=== PATIENT | female | born 1980 | race Caucasian/White ===

== ENCOUNTER 2023-09-28 15:02 | Outpatient (OUT) | payer OTHER, SELFPAY ==
--- NOTE | 2023-09-28 15:13 | XR_ITS ---
The [address] [address] Patient Name: TIFFANIE VENEGAS MRN: [id number] date: 1980 Sex: F Assigned Patient Location: [facility] Current Patient Location: [facility] Accession/Order Number: [id number] Exam Date: 09/28/2023 15:20 Report Date: 09/28/2023 15:53 At the request of: HARIKA NELSON Procedure: XR chest 2V EXAM: XR chest 2V HISTORY: Bronchitis J40 . Cough and shortness of breath intermittently for the past month. COMPARISON: None. TECHNIQUE: Upright PA and lateral chest x-ray FINDINGS: The heart is not enlarged and the vasculature is not distended. No acute infiltrate, effusion or pneumothorax is identified. The osseous structures are grossly intact. XR/XR chest 2V IMPRESSION: No acute infiltrate or evidence of cardiac decompensation. Direct comparison with a previous study would be helpful in confirming the chronicity of these findings. Electronically authenticated by: CHASITY CAMPUZANO Date: 09/28/2023 15:53
--- NOTE | 2023-09-28 15:13 | XR_ITS ---
The [address] [address] Patient Name: TIFFANIE VENEGAS MRN: [id number] date: 1980 Sex: F Assigned Patient Location: [facility] Current Patient Location: Accession/Order Number: [id number] Exam Date: 09/28/2023 15:20 Report Date: 09/29/2023 07:49 At the request of: HARIKA NELSON Procedure: XR lumbar spine 6V w bending EXAMINATION: XR lumbar spine 6V w bending HISTORY: Leg Numbness R20.0 COMPARISON: No relevant comparison available. FINDINGS: BONES: Normal alignment with no acute fracture or spondylolisthesis. Mild degenerative changes with spondylosis and facet osteoarthropathy most significant L4-S1 DISC SPACES: Normal. No significant disc height narrowing, subluxation, or endplate abnormality. PARASPINOUS: Negative. No paraspinous abnormality is seen. OTHER: No spondylolisthesis with flexion or extension XR/XR lumbar spine 6V w bending IMPRESSION: Mild degenerative changes with no dynamic instability Electronically authenticated by: OMKAR ARANGO Date: 09/29/2023 07:49
== END 2023-09-28 15:03 | disposition home or self-care (01) ==
LOC: RAD 15:06
PROVIDERS: PCP Nurse Practitioner Family; Visit Provider Nurse Practitioner Family
DX: J40 Bronchitis, not specified as acute or chronic (principal); R20.0 Anesthesia of skin; M47.816 Spondylosis without myelopathy or radiculopathy, lumbar region
CPT/HCPCS: 71046; 72114

== ENCOUNTER 2024-01-18 08:35 | Outpatient (OUT) | payer OTHER, SELFPAY ==
--- OUTSIDE RECORDS SUMMARY | 2024-01-18 08:40 | XMS_ITS | CCD ---
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 Name Role Phone Greta Nelson Unavailable GRETA NELSON Admitting Unavailable LESLIE, GRETA Attending Unavailable LESLIE, GRETA Primary Care Unavailable LESLIE, GRETA Consulting Unavailable LESLIE, GRETA Admitting Unavailable LESLIE, GRETA Attending Unavailable LESLIE, GRETA Primary Care Unavailable LESLIE, GRETA Consulting Unavailable LESLIE, GRETA Admitting Unavailable LESLIE, GRETA Attending Unavailable LESLIE, GRETA Primary Care Unavailable LESLIE, GRETA Consulting Unavailable LESLIE, GRETA Admitting Unavailable LESLIE, GRETA Attending Unavailable Leslie, FAM-Herbert Hernandes Attending Provider JENISE Whitfield Attending Provider CAITLIN Nelson Primary Care Provider FAM Nelson-Herbert Hernandes Referring Provider [phone] Asaad, Imad Unavailable NO FAMILY, PHYSICIAN Primary Care Unavailable Greta Nelson Attending Unavailable Leslie, Greta Admitting Unavailable Ethan Alfaro II Admitting Unavaila ble Greta Nelson Referring Unavailable Greta Nelson Primary Care Unavailable Ethan Alfaro II Attending Unavaila ble Medications Current Medications Medication Drug Class(es) Dates Sig (Normalized) Sig (Original) [id number] 200 actuat albuterol 0.09 mg/actuat metered dose inhaler (9 sources) beta2-Adrenergic Agonist Start: 08-08-2022 take 2 puff(s) by inhalation every four hours as needed Albuterol Sulfate HFA 108 (90 Base) MCG/ACT 2 puffs as needed Inhalation every 4 hrs Jul, Active Albuterol Sulfat e Active ALPRAZolam 0.25 mg oral tablet (3 sources) Benzodiazepine Start: 06-27-2022 take 0.5-1 tablets by mouth twice daily as needed Xanax 0.25 MG 1/2 to 1 tablet as needed Orally Twice a day Jun, Active azithromycin 250 mg oral tablet (3 sources) Macrolide Antimicrobial Start: 08-08-2022 Azithromycin 250 MG 2 tablets on the first day, then 1 tablet daily for 4 days Orally Once a day for 5 day(s) Jul, Active Blood Pressure Monitor - (3 sources) Start: 06-27-2022 Blood Pressure Monitor - as directed topically bid for 30 day(s) Jun, Active ciclopirox 80 mg/ml topical solution (14 sources) Start: 08-08-2022 Ciclopirox 8 % 1 application Externally Once a day for 30 day(s) Jul, Active 12 hr dextromethorphan hydrobromide 30 mg / guaiFENesin 600 mg extended release oral tablet (3 sources) Uncompetitive N-gwiikk-F-aspart[place] te Receptor Antagonist, Sigma-1 Agonist Start: 08-08-2022 take 1 tablet by mouth every twelve hours Mucinex DM 30-600 MG 1 tablet as needed Orally every 12 hrs Jul, Active methylPREDNISolone 4 mg oral tablet (3 sources) Corticosteroid Start: 08-08-2022 methylPREDNISolone 4 MG as directed Orally Once a day for 6 days Jul, Active 24 hr metoprolol succinate 50 mg extended release oral tablet (14 sources) beta-Adrenergic Magi Start: 08-08-2022 take 1 tablet by mouth every twenty-fou r hours Toprol XL 50 MG 1 tablet Orally Once a day for 30 days Jul, Active Start: 08-08-2022 take 1 tablet by annette th every twenty-four hours Toprol XL 25 MG 1 tablet Orally Once a day for 30 days Jul, Active Start: 08-08-2022 take 0.5 tablet by mouth once daily Toprol XL 25 MG 1/2 tablet Orally Once a day for 30 day(s) Jul, Active polyethylene glycol 3350 328240 mg / potassium chloride 2970 mg / sodium bicarbonate 6740 mg / sodium chloride 5860 mg / sodium sulfate 75553 mg powder for oral solution (1 source) Osmotic Laxative Start: 02-27-2023 take 236 g by mouth once daily Golytely 236 GM as directed Orally once daily for 1 days Feb, Active Super B Complex/C (4 sources) Super B Complex/ C Active Undecylenate (2 sources) Start: 08-15-2022 Undecylenic Ac id 25 % 1 application Externally Twice a day for 28 day(s) Jul, Active Problems Active Problems Problem Classification Problem Date Documented Date Episodic/Chronic Abdominal pain (2 sources) Abdominal pain; Translations: [Unspecified abdominal pain] Episodic Allergic reactions (9 sources) Urticaria, unspecified; Translations: [Other specified disorders of the skin and subcutaneous tissue related to radiation] Onset: 08-08-2022 Resolved: 08-08-2022 Episodic 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: 06-27-2022 Chronic Deficiency and other anemia (5 sources) Anemia, unspecified; Translations: [ANEMIA UNSPECIFIED] Onset: 09-15-2022 Episodic Deficiency and other anemia (9 sources) Iron deficiency anemia; Translations: [Iron deficiency anemia, unspecified] 11-08-2022 Episodic Deficiency and other anemia (4 sources) Iron deficiency anemia, unspecified; Translations: [Iron deficiency anemia, unspecified] Onset: 08-10-2023 Episodic Essential hypertension (18 sources) Essential hypertension; Translations: [Essential (primary) hypertension] Onset: 08-08-2022 Resolved: 08-08-2022 Chronic Immunizations and screening for infectious disease (1 source) Other specified abnormal immunological findings in serum Episodic Other nutritional; endocrine; and metabolic disorders (2 sources) Abnormal weight gain; Translations: [ABNORMAL WEIGHT GAIN] Onset: 06-27-2022 Resolved: 06-27-2022 Episodic Past or Other Problems Problem Classification Problem Date Documented Da te Episodic/Chronic Chronic obstructive pulmonary disease and bronchiectasis (1 source) Bronchitis, not specified as acute or chronic Onset: 08-08-2022 Resolved: 08-08-2022 Episodic Mycoses (1 source) Tinea unguium Onset: 08-08-2022 Resolved: 08-08-2022 Episodic Other aftercare (1 source) Encounter for follow-up examination after completed treatment for conditions other than malignant neoplasm Onset: 08-08-2022 Resolved: 08-08-2022 Episodic Other circulatory disease (1 source) Elevated blood-pressure reading, without diagnosis of hypertension Onset: 06-27-2022 Resolved: 06-27-2022 Episodic Other injuries and conditions due to external causes (1 source) Unspecified injury of right foot, initial encounter Onset: 06-27-2022 Resolved: 06-27-2022 Episodic Spondylosis; intervertebral disc disorders; other back problems (2 sources) Cervicalgia; Translations: [Cervicalgia] Onset: 10-17-2022 Episodic Results Test Name Value Interpretation Reference Range Facility Complete Blood Count Auto Di ffon 08-10-2023 Basophils (Bld) [#/Vol] 0.1 10*3/uL Normal 0.0-0.2 [facility] Comment on above: Result Comment: PERF ORMED BY: [place] [address] PATHOLOGIST FISHERY BIOLOGIST URI GILES M.D. Performed By: #### F ER, FE and TIBC #### [facility] [address] Basophils/100 WBC (Bld) 0.7 % Normal . [facility] Comment on above: Performed By: #### F ER, FE and TIBC #### [facility] [address] [place] [address] [place] Eosinophils (Bld) [#/Vol] 0.2 10*3/uL Normal 0.0-0.45 [facility] Comment on above: Performed By: #### F ER, FE and TIBC #### [facility] [address] [place] [address] [place] Eosinophils/100 WBC (Bld) 1.8 % Normal . [facility] Comment on above: Performed By: #### F ER, FE and TIBC #### [facility] [address] Erythrocyte distribution width (RBC) [Ratio] 14.0 % Normal 11.9-15.3 [facility] Comment on above: Performed By: #### F ER, FE and TIBC #### [address] Hematocrit (Bld) [Volume fraction] 39.2 % Normal 34.0-46.4 [facility] Comment on above: Performed By: #### F ER, FE and TIBC #### [address] Hemoglobin (Bld) [Mass/Vol] 13.0 g/dL Normal 11.8-15.4 [facility] Comment on above: Performed By: #### F ER, FE and TIBC #### [address] Lymphocytes (Bld) [#/Vol] 3.4 10*3/uL Normal 1.00-4.8 [facility] Comment on above: Performed By: #### F ER, FE and TIBC #### [address] Lymphocytes/100 WBC (Bld) 29.2 % Normal . [facility] Comment on above: Performed By: #### F ER, FE and TIBC #### [address] MCH (RBC) [Entitic mass] 28.1 pg Normal 24.7-34.3 [facility] Comment on above: Performed By: #### F ER, FE and TIBC #### [address] MCV (RBC) [Entitic vol] 84.4 fL Normal 80-100 [facility] Comment on above: Performed By: #### F ER, FE and TIBC #### [address] Mean Corpuscular HGB Conc 33.3 g/dL Normal 32.0-35.0 [facility] Comment on above: Performed By: #### F ER, FE and TIBC #### [address] Monocytes (Bld) [#/Vol] 0.5 10*3/uL Normal 0.0-0.8 [facility] Comment on above: Performed By: #### F ER, FE and TIBC #### [facility] [address] Monocytes/100 WBC (Bld) 4.6 % Normal . [facility] Comment on above: Performed By: #### F ER, FE and TIBC #### [facility] [address] [place] [address] Neutrophils (Bld) [#/Vol] 7.5 10*3/uL Normal 1.8-7.7 [facility] Comment on above: Performed By: #### F ER, FE and TIBC #### [address] Neutrophils/100 WBC (Bld) 63.7 % Normal . [facility] Comment on above: Performed By: #### F ER, FE and TIBC #### [address] NRBC% 0.1 /100{WBC} Normal 0-0.5 [facility] Comment on above: Performed By: #### F ER, FE and TIBC #### [address] Platelet mean volume (Bld) [Entitic vol] 7.4 fL Normal 6.3-10.7 [facility] Comment on above: Performed By: #### F ER, FE and TIBC #### [address] Platelets (Bld) [#/Vol] 341 10*3/uL Normal 150-450 [facility] Comment on above: Performed By: #### F ER, FE and TIBC #### [facility] [address] [place] [address] RBC (Bld) [#/Vol] 4.64 10*6/uL Normal 3.60-5.[address] [facility] Comment on above: Performed By: #### F ER, FE and TIBC #### [facility] [address] WBC (Bld) [#/Vol] 11.7 10*3/uL High 3.8-11.[address] [facility] Comment on above: Performed By: #### F ER, FE and TIBC #### [address] Ferritinon 08-10-2023 Ferritin [Mass/Vol] 60.7 ng/mL Normal 11.0-306.[address] [facility] Comment on above: Result Comment: PERF ORMED BY: [place] [address] PATHOLOGIST FISHERY BIOLOGIST URI GILES M.D. Performed By: #### F ER, FE and TIBC #### [address] Iron and TIBC Profileon 07-28 % Iron Saturation 24.2 % Normal 20-50 [facility] Comment on above: Performed By: #### F ER, FE and TIBC #### [address] Iron [Mass/Vol] 84 ug/dL Normal 50-212 [facility] Comment on above: Performed By: #### F ER, FE and TIBC #### [address] Total Iron Binding Capacity 347 ug/dL Normal 255-450 [facility] Comment on above: Performed By: #### F ER, FE and TIBC #### [address] Transferrin [Mass/Vol] 248 mg/dL Normal 203-362 [facility] Comment on above: Performed By: #### F ER, FE and TIBC #### [address] Complete Blood Count Auto Di ffon 04-25-2023 Basophils (Bld) [#/Vol] 0.1 10*3/uL Normal 0.0-0.2 [facility] Comment on above: Result Comment: PERF ORMED BY: [place] [address] PATHOLOGIST FISHERY BIOLOGIST URI GILES M.D. Performed By: #### F E and TIBC, KVNG, CBC #### [address] Basophils/100 WBC (Bld) 0.8 % Normal . [facility] Comment on above: Performed By: #### F E and TIBC, KVNG, CBC #### [address] Eosinophils (Bld) [#/Vol] 0.3 10*3/uL Normal 0.0-0.45 [facility] Comment on above: Performed By: #### F E and TIBC, KVNG, CBC #### [address] Eosinophils/100 WBC (Bld) 2.8 % Normal . [facility] Comment on above: Performed By: #### F E and TIBC, KVNG, CBC #### [address] Erythrocyte distribution width (RBC) [Ratio] 14.3 % Normal 11.9-15.3 [facility] Comment on above: Performed By: #### F E and TIBC, KVNG, CBC #### [address] Hematocrit (Bld) [Volume fraction] 38.8 % Normal 34.0-46.4 [facility] Comment on above: Performed By: #### F E and TIBC, KVNG, CBC #### [address] Hemoglobin (Bld) [Mass/Vol] 12.9 g/dL Normal 11.8-15.4 [facility] Comment on above: Performed By: #### F E and TIBC, KVNG, CBC #### [address] Lymphocytes (Bld) [#/Vol] 3.7 10*3/uL Normal 1.00-4.8 [facility] Comment on above: Performed By: #### F E and TIBC, KVNG, CBC #### [address] Lymphocytes/100 WBC (Bld) 33.9 % Normal . [facility] Comment on above: Performed By: #### F E and TIBC, KVNG, CBC #### [address] MCH (RBC) [Entitic mass] 27.6 pg Normal 24.7-34.3 [facility] Comment on above: Performed By: #### F E and TIBC, KVNG, CBC #### [address] MCV (RBC) [Entitic vol] 83.3 fL Normal 80-100 [facility] Comment on above: Performed By: #### F E and TIBC, KVNG, CBC #### [address] Mean Corpuscular HGB Conc 33.1 g/dL Normal 32.0-35.0 [facility] Comment on above: Performed By: #### F E and TIBC, KVNG, CBC #### [address] Monocytes (Bld) [#/Vol] 0.5 10*3/uL Normal 0.0-0.8 [facility] Comment on above: Performed By: #### F E and TIBC, KVNG, CBC #### [address] Monocytes/100 WBC (Bld) 4.2 % Normal . [facility] Comment on above: Performed By: #### F E and TIBC, KVNG, CBC #### [address] Neutrophils (Bld) [#/Vol] 6.4 10*3/uL Normal 1.8-7.7 [facility] Comment on above: Performed By: #### F E and TIBC, KVNG, CBC #### [address] Neutrophils/100 WBC (Bld) 58.3 % Normal . [facility] Comment on above: Performed By: #### F E and TIBC, KVNG, CBC #### [address] NRBC% 0.1 /100{WBC} Normal 0-0.5 [facility] Comment on above: Performed By: #### F E and TIBC, KVNG, CBC #### [address] Platelet mean volume (Bld) [Entitic vol] 7.3 fL Normal 6.3-10.7 [facility] Comment on above: Performed By: #### F E and TIBC, KVNG, CBC #### [address] Platelets (Bld) [#/Vol] 365 10*3/uL Normal 150-450 [facility] Comment on above: Performed By: #### F E and TIBC, KVNG, CBC #### [address] RBC (Bld) [#/Vol] 4.66 10*6/uL Normal 3.60-5.[address] [facility] Comment on above: Performed By: #### F E and TIBC, KVNG, CBC #### [address] WBC (Bld) [#/Vol] 11.0 10*3/uL Normal 3.8-11.[address] [facility] Comment on above: Performed By: #### F E and TIBC, KVNG, CBC #### [address] Ferritinon 04-25-2023 Ferritin [Mass/Vol] 91.8 ng/mL Normal 11.0-306.[address] [facility] Comment on above: Result Comment: PERF ORMED BY: [place] [address] PATHOLOGIST FISHERY BIOLOGIST URI GILES M.D. Performed By: #### F E and TIBC, KVNG, CBC #### [facility] [address] [place] [id number] [place] Iron and TIBC Profileon 03-29 % Iron Saturation 20.5 % Normal 20-50 [facility] Comment on above: Performed By: #### F E and TIBC, KVNG, CBC #### [facility] [address] [place] [address] [facility] Iron [Mass/Vol] 69 ug/dL Normal 50-212 [facility] Comment on above: Performed By: #### F E and TIBC, KVNG, CBC #### [facility] [address] Total Iron Binding Capacity 337 ug/dL Normal 255-450 [facility] Comment on above: Performed By: #### F E and TIBC, KVNG, CBC #### [facility] [address] [place] [id number] [facility] Transferrin [Mass/Vol] 241 mg/dL Normal 203-362 [facility] Comment on above: Performed By: #### F E and TIBC, KVNG, CBC #### [facility] [address] [place] [address] [place] HbA1c (Bld) [Mass fraction]o n 01-24-2023 A1C HEMOGLOBIN 5.3 [employer] Other A1C HEMOGLOBIN [employer] Other Basophils Auto (Bld) [#/Vol] Ordered By: Savana Whitfield on 01-16-2023 Basophils (Bld) [#/Vol] 0.1 10*3/uL 0.0-0.2 [facility] Basophils/100 WBC Auto (Bld) Ordered By: Savana Whitfield on 01-16-2023 Basophils/100 WBC (Bld) 0.5 % . F [facility] CT biopsyOrdered By: Savana Soto on 01-16-2023 Transferrin [Mass/Vol] 238 mg/dL 180-380 [facility] Complete Blood Count Auto Di ffon 01-16-2023 Basophils (Bld) [#/Vol] 0.1 10*3/uL Normal 0.0-0.2 [facility] Comment on above: Result Comment: PERF ORMED BY: [place] [address] PATHOLOGIST FISHERY BIOLOGIST URI GILES M.D. Performed By: #### F ER, FE and TIBC #### [address] Basophils/100 WBC (Bld) 0.5 % Normal . [facility] Comment on above: Performed By: #### F ER, FE and TIBC #### [address] Eosinophils (Bld) [#/Vol] 0.2 10*3/uL Normal 0.0-0.45 [facility] Comment on above: Performed By: #### F ER, FE and TIBC #### [address] Eosinophils/100 WBC (Bld) 1.6 % Normal . [facility] Comment on above: Performed By: #### F ER, FE and TIBC #### [address] Erythrocyte distribution width (RBC) [Ratio] 19.7 % High 11.9-15.3 [facility] Comment on above: Performed By: #### F ER, FE and TIBC #### [address] Hematocrit (Bld) [Volume fraction] 39.1 % Normal 34.0-46.4 [facility] Comment on above: Performed By: #### F ER, FE and TIBC #### [address] Hemoglobin (Bld) [Mass/Vol] 12.6 g/dL Normal 11.8-15.4 [facility] Comment on above: Performed By: #### F ER, FE and TIBC #### [address] Lymphocytes (Bld) [#/Vol] 4.2 10*3/uL Normal 1.00-4.8 [facility] Comment on above: Performed By: #### F ER, FE and TIBC #### [address] Lymphocytes/100 WBC (Bld) 31.5 % Normal . [facility] Comment on above: Performed By: #### F ER, FE and TIBC #### [address] MCH (RBC) [Entitic mass] 25.3 pg Normal 24.7-34.3 [facility] Comment on above: Performed By: #### F ER, FE and TIBC #### [address] MCV (RBC) [Entitic vol] 78.1 fL Low 80-100 [facility] Comment on above: Performed By: #### F ER, FE and TIBC #### [address] Mean Corpuscular HGB Conc 32.4 g/dL Normal 32.0-35.0 [facility] Comment on above: Performed By: #### F ER, FE and TIBC #### [address] Monocytes (Bld) [#/Vol] 0.6 10*3/uL Normal 0.0-0.8 [facility] Comment on above: Performed By: #### F ER, FE and TIBC #### [address] Monocytes/100 WBC (Bld) 4.6 % Normal . [facility] Comment on above: Performed By: #### F ER, FE and TIBC #### [address] Neutrophils (Bld) [#/Vol] 8.2 10*3/uL High 1.8-7.7 [facility] Comment on above: Performed By: #### F ER, FE and TIBC #### [address] [address] [place] Neutrophils/100 WBC (Bld) 61.8 % Normal . [facility] Comment on above: Performed By: #### F ER, FE and TIBC #### [address] NRBC% 0.1 /100{WBC} Normal 0-0.5 [facility] Comment on above: Performed By: #### F ER, FE and TIBC #### [address] Platelet mean volume (Bld) [Entitic vol] 7.1 fL Normal 6.3-10.7 [facility] Comment on above: Performed By: #### F ER, FE and TIBC #### [address] Platelets (Bld) [#/Vol] 388 10*3/uL Normal 150-450 [facility] Comment on above: Performed By: #### F ER, FE and TIBC #### [address] RBC (Bld) [#/Vol] 5.00 10*6/uL Normal 3.60-5.[address] [facility] Comment on above: Performed By: #### F ER, FE and TIBC #### [address] WBC (Bld) [#/Vol] 13.3 10*3/uL High 3.8-11.[address] [facility] Comment on above: Performed By: #### F ER, FE and TIBC #### [address] Eosinophils Auto (Bld) [#/Vo l]Ordered By: Savana Whitfield on 01-16-2023 Eosinophils (Bld) [#/Vol] 0.2 10*3/uL 0.0-0.45 [facility] Eosinophils/100 WBC Auto (Bl d)Ordered By: Savana Whitfield on 01-16-2023 Eosinophils/100 WBC (Bld) 1.6 % . [facility] Erythrocyte distribution wid th Auto (RBC) [Ratio]Ordered By: Savana Roseann on 01-16-2023 Erythrocyte distribution width (RBC) [Ratio] 19.7 % 11.9-15.3 [facility] Ferritinon 01-16-2023 Ferritin [Mass/Vol] 113.5 ng/mL Normal 11-306.8 [facility] Comment on above: Result Comment: PERF ORMED BY: [facility] [address] [facility] [address] PATHOLOGIST FISHERY BIOLOGIST URI GILES M.D. Performed By: #### F ER, FE and TIBC #### [facility] [address] Ferritin [Mass/volume] in Se rum or PlasmaOrdered By: Savana Roseann on 01-16-2023 Ferritin [Mass/Vol] 113.5 ng/mL 11-306.8 [facility] Hematocrit Auto (Bld) [Volum e fraction]Ordered By: Savana Roseann on 01-16-2023 Hematocrit (Bld) [Volume fraction] 39.1 % 34.0-46.4 [facility] Hemoglobin [Mass/volume] in BloodOrdered By: Savana Whitfield on 01-16-2023 Hemoglobin (Bld) [Mass/Vol] 12.6 g/dL 11.8-15.4 [facility] Iron [Mass/volume] in Serum or PlasmaOrdered By: Savana Roseann on 01-16-2023 Iron [Mass/Vol] 57 ug/dL 40-150 [facility] Iron and TIBC Profileon 12-29 0 % Iron Saturation 17.1 % Low 20-50 [facility] Comment on above: Performed By: #### F ER, FE and TIBC #### [facility] [address] [place] [id number] [facility] Iron [Mass/Vol] 57 ug/dL Normal 40-150 [facility] Comment on above: Performed By: #### F ER, FE and TIBC #### [facility] [address] [place] [address] [facility] Total Iron Binding Capacity 333 ug/dL Normal 255-450 [facility] Comment on above: Performed By: #### F ER, FE and TIBC #### [facility] [address] [place] [id number] [place] Transferrin [Mass/Vol] 238 mg/dL Normal 180-380 [facility] Comment on above: Performed By: #### F ER, FE and TIBC #### [facility] [address] [place] [id number] [place] Iron binding capacity [Mass/ volume] in Serum or PlasmaOrdered By: Savana Whitfield on 01-16-2023 Iron binding capacity [Mass/Vol] 333 ug/dL 255-450 [facility] Iron saturation [Mass Fracti on] in Serum or PlasmaOrdered By: Savana Whitfield on 01-16-2023 Iron saturation [Mass fraction] 17.1 % 20-50 [facility] Leukocytes [#/volume] correc issa for nucleated erythrocytes in Blood by Automated counOrdered By: Savana Whitfield on 01-16-2023 WBC corrected for nucl RBC Auto (Bld) [#/Vol] 13.3 10*3/uL 3.8-11.6 [facility] Lymphocytes Auto (Bld) [#/Vo l]Ordered By: Savana Whitfield on 01-16-2023 Lymphocytes (Bld) [#/Vol] 4.2 10*3/uL 1.00-4.8 [facility] Lymphocytes/100 WBC Auto (Bl d)Ordered By: Savana Whitfield on 01-16-2023 Lymphocytes/100 WBC (Bld) 31.5 % . [facility] MCH Auto (RBC) [Entitic mass ]Ordered By: Savana Whitfield on 01-16-2023 MCH (RBC) [Entitic mass] 25.3 pg 24.7-34.3 [facility] MCHC Auto (RBC) [Mass/Vol]Or dered By: Savana Whitfield on 01-16-2023 MCHC (RBC) [Mass/Vol] 32.4 g/dL 32.0-35.0 [facility] MCV Auto (RBC) [Entitic vol] Ordered By: Savana Whitfield on 01-16-2023 MCV (RBC) [Entitic vol] 78.1 fL 80-100 [facility] Monocytes Auto (Bld) [#/Vol] Ordered By: Savana Whitfield on 01-16-2023 Monocytes (Bld) [#/Vol] 0.6 10*3/uL 0.0-0.8 [facility] Monocytes/100 WBC Auto (Bld) Ordered By: Savana Whitfield on 01-16-2023 Monocytes/100 WBC (Bld) 4.6 % . F [facility] Neutrophils Auto (Bld) [#/Vo l]Ordered By: Savana Whitfield on 01-16-2023 Neutrophils (Bld) [#/Vol] 8.2 10*3/uL 1.8-7.7 [facility] Neutrophils/100 WBC Auto (Bl d)Ordered By: Savana Whitfield on 01-16-2023 Neutrophils/100 WBC (Bld) 61.8 % . [facility] Nucleated erythrocytes [Pres ence] in Blood by Automated countOrdered By: Savana Whitfield on 01-16-2023 Nucleated RBC Auto Ql (Bld) 0.1 /100{WBC} 0-0.5 [facility] Platelet mean volume Auto (B ld) [Entitic vol]Ordered By: Savana Whitfield on 01-16-2023 Platelet mean volume (Bld) [Entitic vol] 7.1 fL 6.3-10.7 [facility] Platelets Auto (Bld) [#/Vol] Ordered By: Savana Whitfield on 01-16-2023 Platelets (Bld) [#/Vol] 388 10*3/uL 150-450 [facility] RBC Auto (Bld) [#/Vol]Ordere d By: Savana Whitfield on 01-16-2023 RBC (Bld) [#/Vol] 5.00 10*6/uL 3.60-5.[address] [facility] WBC Auto (Bld) [#/Vol]Ordere d By: Savana Whitfield on 01-16-2023 WBC (Bld) [#/Vol] 13.3 10*3/uL 3.8-11.[address] [facility] Absolute reticulocyte countO rdered By: Savana Whitfield on 01-10-2023 Reticulocytes (Bld) [#/Vol] 0.082 10*6/uL 0.024-0.084 [facility] Albumin [Mass/volume] in Ser um or PlasmaOrdered By: Savana Whitfield on 12-06-2022 Albumin [Mass/Vol] 3.4 g/dL 3.2-5.5 [facility] Complete Blood Count Auto Di ffon 12-06-2022 Basophils (Bld) [#/Vol] 0.1 10*3/uL Normal 0.0-0.2 [facility] Comment on above: Performed By: #### C BC, FE and TIBC, ESR, CMP, KVNG, RETIC #### [place] [address] [place] #### EPO #### [facility] , Basophils/100 WBC (Bld) 0.8 % Normal . [facility] Comment on above: Performed By: #### C BC, FE and TIBC, ESR, CMP, KVNG, RETIC #### [place] [address] [place] #### EPO #### [facility] , Eosinophils (Bld) [#/Vol] 0.2 10*3/uL Normal 0.0-0.45 [facility] Comment on above: Performed By: #### C BC, FE and TIBC, ESR, CMP, KVNG, RETIC #### [place] [address] [place] #### EPO #### [facility] , Eosinophils/100 WBC (Bld) 2.0 % Normal . [facility] Comment on above: Performed By: #### C BC, FE and TIBC, ESR, CMP, KVNG, RETIC #### [place] [address] [place] #### EPO #### [facility] , Erythrocyte distribution width (RBC) [Ratio] 16.2 % High 11.9-15.3 [facility] Comment on above: Performed By: #### C BC, FE and TIBC, ESR, CMP, KVNG, RETIC #### [place] [address] [place] #### EPO #### [facility] , Hematocrit (Bld) [Volume fraction] 36.4 % Normal 34.0-46.4 [facility] Comment on above: Performed By: #### C BC, FE and TIBC, ESR, CMP, KVNG, RETIC #### [place] [address] [place] #### EPO #### [facility] , Hemoglobin (Bld) [Mass/Vol] 11.5 g/dL Low 11.8-15.4 [facility] Comment on above: Performed By: #### C BC, FE and TIBC, ESR, CMP, KVNG, RETIC #### [place] [address] [place] #### EPO #### [facility] , Lymphocytes (Bld) [#/Vol] 3.4 10*3/uL Normal 1.00-4.8 [facility] Comment on above: Performed By: #### C BC, FE and TIBC, ESR, CMP, KVNG, RETIC #### [place] [address] [place] #### EPO #### [facility] , Lymphocytes/100 WBC (Bld) 31.4 % Normal . [facility] Comment on above: Performed By: #### C BC, FE and TIBC, ESR, CMP, KVNG, RETIC #### [place] [address] [place] #### EPO #### [facility] , MCH (RBC) [Entitic mass] 23.6 pg Low 24.7-34.3 [facility] Comment on above: Performed By: #### C BC, FE and TIBC, ESR, CMP, KVNG, RETIC #### [place] [address] [place] #### EPO #### [facility] , MCV (RBC) [Entitic vol] 74.5 fL Low 80-100 [facility] Comment on above: Performed By: #### C BC, FE and TIBC, ESR, CMP, KVNG, RETIC #### [place] [address] [place] #### EPO #### [facility] , Mean Corpuscular HGB Conc 31.7 g/dL Low 32.0-35.0 [facility] Comment on above: Performed By: #### C BC, FE and TIBC, ESR, CMP, KVNG, RETIC #### [place] [address] [place] #### EPO #### [facility] , Monocytes (Bld) [#/Vol] 0.5 10*3/uL Normal 0.0-0.8 [facility] Comment on above: Performed By: #### C BC, FE and TIBC, ESR, CMP, KVNG, RETIC #### [place] [address] [place] #### EPO #### [facility] , Monocytes/100 WBC (Bld) 4.5 % Normal . [facility] Comment on above: Performed By: #### C BC, FE and TIBC, ESR, CMP, KVNG, RETIC #### [place] [address] [place] #### EPO #### [facility] , Neutrophils (Bld) [#/Vol] 6.6 10*3/uL Normal 1.8-7.7 [facility] Comment on above: Performed By: #### C BC, FE and TIBC, ESR, CMP, KVNG, RETIC #### [place] [address] [place] #### EPO #### [facility] , Neutrophils/100 WBC (Bld) 61.3 % Normal . [facility] Comment on above: Performed By: #### C BC, FE and TIBC, ESR, CMP, KVNG, RETIC #### [place] [address] [place] #### EPO #### [facility] , NRBC% 0.1 /100{WBC} Normal 0-0.5 [facility] Comment on above: Performed By: #### C BC, FE and TIBC, ESR, CMP, KVNG, RETIC #### [place] [address] [place] #### EPO #### [facility] , Platelet mean volume (Bld) [Entitic vol] 7.2 fL Normal 6.3-10.7 [facility] Comment on above: Performed By: #### C BC, FE and TIBC, ESR, CMP, KVNG, RETIC #### [place] [address] [place] #### EPO #### [facility] , Platelets (Bld) [#/Vol] 416 10*3/uL Normal 150-450 [facility] Comment on above: Performed By: #### C BC, FE and TIBC, ESR, CMP, KVNG, RETIC #### [place] [address] [place] #### EPO #### [facility] , RBC (Bld) [#/Vol] 4.88 10*6/uL Normal 3.60-5.[address] [facility] Comment on above: Performed By: #### C BC, FE and TIBC, ESR, CMP, KVNG, RETIC #### [place] [address] [place] #### EPO #### [facility] , WBC (Bld) [#/Vol] 10.8 10*3/uL Normal 3.8-11.[address] [facility] Comment on above: Performed By: #### C BC, FE and TIBC, ESR, CMP, KVNG, RETIC #### [place] [address] [place] #### EPO #### [facility] , Comprehensive Metabolic Pane [place] 12-06-2022 Albumin [Mass/Vol] 3.4 g/dL Normal 3.2-5.5 [facility] Comment on above: Performed By: #### C BC, FE and TIBC, ESR, CMP, KVNG, RETIC #### [facility] [address] [place] [address] [place] #### EPO #### [facility] , Albumin/Globulin [Mass ratio] 1.1 {ratio} Normal [facility] Comment on above: Performed By: #### C BC, FE and TIBC, ESR, CMP, KVNG, RETIC #### [address] #### EPO #### [facility] , ALP [Catalytic activity/Vol] 74 U/L Normal 32-92 [facility] Comment on above: Performed By: #### C BC, FE and TIBC, ESR, CMP, KVNG, RETIC #### [place] [address] [place] #### EPO #### [facility] , ALT [Catalytic activity/Vol] 21 U/L Normal 10-60 [facility] Comment on above: Performed By: #### C BC, FE and TIBC, ESR, CMP, KVNG, RETIC #### [place] [address] [place] #### EPO #### [facility] , Anion gap [Moles/Vol] 11.3 mmol/L Normal 6.0-15.0 [facility] Comment on above: Performed By: #### C BC, FE and TIBC, ESR, CMP, KVNG, RETIC #### [place] [address] [place] #### EPO #### [facility] , AST [Catalytic activity/Vol] 18 U/L Normal 10-42 [facility] Comment on above: Performed By: #### C BC, FE and TIBC, ESR, CMP, KVNG, RETIC #### [facility] [address] [place] [address] [place] #### EPO #### [facility] , Bilirubin [Mass/Vol] 0.3 mg/dL Normal 0.3-1.2 [facility] Comment on above: Performed By: #### C BC, FE and TIBC, ESR, CMP, KVNG, RETIC #### [place] [address] [place] #### EPO #### [facility] , Calcium [Mass/Vol] 8.9 mg/dL Normal 8.2-10.2 [facility] Comment on above: Performed By: #### C BC, FE and TIBC, ESR, CMP, KVNG, RETIC #### [place] [address] [place] #### EPO #### [facility] , Chloride [Moles/Vol] 102 mmol/L Normal 95-114 [facility] Comment on above: Performed By: #### C BC, FE and TIBC, ESR, CMP, KVNG, RETIC #### [place] [address] [place] #### EPO #### [facility] , CO2 [Moles/Vol] 24.9 mmol/L Normal 22.0-30.0 [facility] Comment on above: Performed By: #### C BC, FE and TIBC, ESR, CMP, KVNG, RETIC #### [place] [address] [place] #### EPO #### [facility] , Creatinine [Mass/Vol] 0.67 mg/dL Normal 0.44-1.03 [facility] Comment on above: Performed By: #### C BC, FE and TIBC, ESR, CMP, KVNG, RETIC #### [address] [place] [address] [place] #### EPO #### [facility] , Creatinine Clr Calc Pharmacy 142.02 [facility] Comment on above: Performed By: #### C BC, FE and TIBC, ESR, CMP, KVNG, RETIC #### [place] [address] [place] #### EPO #### [facility] , Estimated GFR ( Shanel > 60 [facility] Comment on above: Result Comment: GFR estimated reference range: According to KDOQI guidelines, <60 ml/min/1.73m2 is sufficient to diagnose a patient with chronic kidney disease. Performed By: #### C BC, FE and TIBC, ESR, CMP, KVNG, RETIC #### [address] #### EPO #### [facility] , Estimated GFR (Non- Am > 60 [facility] Comment on above: Performed By: #### C BC, FE and TIBC, ESR, CMP, KVNG, RETIC #### [place] [address] [place] #### EPO #### [facility] , Globulin (S) [Mass/Vol] 3.0 g/dL [facility] Comment on above: Performed By: #### C BC, FE and TIBC, ESR, CMP, KVNG, RETIC #### [place] [address] [place] #### EPO #### [facility] , Glucose [Mass/Vol] 124 mg/dL High 70-100 [facility] Comment on above: Result Comment: [place] om Glucose Reference Range is dependent on time and content of last meal. Glucose of more than 200 mg/dL in a nonstressed, ambulatory subject supports the diagnosis of Diabetes Mellitus. ADA recommended reference range Performed By: #### C BC, FE and TIBC, ESR, CMP, KVNG, RETIC #### [facility] [address] [place] [address] [place] #### EPO #### [facility] , Potassium [Moles/Vol] 4.2 mmol/L Normal 3.5-5.1 [facility] Comment on above: Performed By: #### C BC, FE and TIBC, ESR, CMP, KVNG, RETIC #### [facility] [address] [place] [address] [place] #### EPO #### [facility] , Protein [Mass/Vol] 6.4 g/dL Normal 6.1-7.9 [facility] Comment on above: Performed By: #### C BC, FE and TIBC, ESR, CMP, KVNG, RETIC #### [facility] [address] [place] [address] [place] #### EPO #### [facility] , Sodium [Moles/Vol] 134 mmol/L Low 136-146 [facility] Comment on above: Performed By: #### C BC, FE and TIBC, ESR, CMP, KVNG, RETIC #### [facility] [address] [place] [address] [place] #### EPO #### [facility] , Urea nitrogen [Mass/Vol] 7 mg/dL Low 9-23 [facility] Comment on above: Performed By: #### C BC, FE and TIBC, ESR, CMP, KVNG, RETIC #### [facility] [address] [place] [address] [place] #### EPO #### [facility] , Creatinine and Glomerular fi ltration rate.predicted panel (S/P/Bld)Ordered By: Savana Whitfield on 12-06-2022 Creatinine [Mass/Vol] 0.67 mg/dL 0.44-1.03 [facility] Erythrocyte Sedimentation Ra silviano 12-06-2022 ESR (Bld) [Velocity] 45 mm/h High 0-19 [facility] Comment on above: Result Comment: PERF ORMED BY: [place] [address] PATHOLOGIST FISHERY BIOLOGIST URI GILES M.D. Performed By: #### C BC, FE and TIBC, ESR, CMP, KVNG, RETIC #### [facility] [address] [place] [address] #### EPO #### [facility] , Erythrocyte sedimentation ra te by Photometric methodOrdered By: Savana Whitfield on 12-06-2022 ESR Photometric method (Bld) [Velocity] 45 mm/hr 0-19 [facility] Erythropoetin (EPO), Serumon 12-06-2022 Erythropoetin (EPO), Serum 16.3 m[iU]/mL Normal 2.6-18.5 [facility] Comment on above: Result Comment: [employer] DxI 800 Immunoassay System Values obtained with different assay methods or kits cannot be used interchangeably. Results cannot be interpreted as absolute evidence of the presence or absence of malignant disease. Performed at: [employer] [facility] [id number] [employer]: Zohaib Virgen PhD, Phone: [phone] PERFORMED BY: [place] [address] PATHOLOGIST FISHERY BIOLOGIST URI GILES M.D. Performed By: #### F ER, FE and TIBC #### [address] Estimated glomerular filtrat ion rate (GFR) non- AmericanOrdered By: Savana Whitfield on 12-06-2022 GFR/1.73 sq M.predicted among non-blacks MDRD (S/P/Bld) [Vol rate/Area] > 60 mL/Min [facility] Ferritinon 12-06-2022 Ferritin [Mass/Vol] 15.6 ng/mL Normal 11-306.[address] [facility] Comment on above: Result Comment: PERF ORMED BY: [place] [address] PATHOLOGIST FISHERY BIOLOGIST URI GILES M.D. Performed By: #### F ER, FE and TIBC #### [facility] [address] Globulin Calc (S) [Mass/Vol] Ordered By: Savana Roseann on 12-06-2022 Globulin (S) [Mass/Vol] 3.0 g/dL [facility] Iron and TIBC Profileon 11-27 % Iron Saturation 7.0 % Low 20-50 [facility] Comment on above: Performed By: #### F ER, FE and TIBC #### [facility] [address] [place] [address] Iron [Mass/Vol] 29 ug/dL Low 40-150 [facility] Comment on above: Performed By: #### F ER, FE and TIBC #### [facility] [address] [place] [address] Total Iron Binding Capacity 413 ug/dL Normal 255-450 [facility] Comment on above: Performed By: #### F ER, FE and TIBC #### [facility] [address] [place] [address] Transferrin [Mass/Vol] 295 mg/dL Normal 180-380 [facility] Comment on above: Performed By: #### F ER, FE and TIBC #### [facility] [address] [place] [address] No Panel InformationOrdered By: Savana Roseann on 12-06-2022 Estimated GFR () > 60 mL/Min [facility] Comment on above: GFR estimated refere nce range: According to KDOQI guidelines, <60 ml/min/1.73m2 is sufficient to diagnose a patient with chronic kidney disease. Pharmacy Creatinine Clearance (Chem 142.02 [facility] Protein [Mass/volume] in Ser um or PlasmaOrdered By: Savana Whitfield on 12-06-2022 Protein [Mass/Vol] 6.4 g/dL 6.1-7.9 [facility] Reticulocyte Counton 023 Reticulocyte Number 0.082 10*6/uL Normal 0.024-0.084 [facility] Comment on above: Performed By: #### C BC, FE and TIBC, ESR, CMP, KVNG, RETIC #### [facility] [address] [place] [address] [place] #### EPO #### [facility] , Reticulocyte Percent 1.7 % High 0.5-1.5 [facility] Comment on above: Performed By: #### C BC, FE and TIBC, ESR, CMP, KVNG, RETIC #### [facility] [address] [place] [address] [place] #### EPO #### [facility] , Reticulocytes/100 RBC Auto ( Bld)Ordered By: Savana Whitfield on 12-06-2022 Reticulocytes/100 RBC (Bld) 1.7 % 0.5-1.5 [facility] Serum or plasma alanine dial otransferase measurement without P-5'-P (enzymatic activiOrdered By: Savana Whitfield on 12-06-2022 ALT No additional P-5'-P [Catalytic activity/Vol] 21 U/L 10-60 [facility] Serum or plasma albumin/glob ulin mass ratioOrdered By: Savana Whitfield on 12-06-2022 Albumin/Globulin [Mass ratio] 1.1 {ratio} [facility] Serum or plasma alkaline oscar sphatase measurement (enzymatic activity/volume)Ordered By: Savana Whitfield on 12-06-2022 ALP [Catalytic activity/Vol] 74 U/L 32-92 [facility] Serum or plasma anion gap de terminationOrdered By: Savana Whitfield on 12-06-2022 Anion gap [Moles/Vol] 11.3 mmol/L 6.0-15.0 [facility] Serum or plasma aspartate am inotransferase measurement (enzymatic activity/volume)Ordered By: Savana Whitfield on 12-06-2022 AST [Catalytic activity/Vol] 18 U/L 10-42 [facility] Serum or plasma calcium marilia urement (mass/volume)Ordered By: Savana Whitfield on 12-06-2022 Calcium [Mass/Vol] 8.9 mg/dL 8.2-10.2 [facility] Serum or plasma chloride claudine surement (moles/volume)Ordered By: Savana Whitfield on 12-06-2022 Chloride [Moles/Vol] 102 mmol/L 95-114 [facility] Serum or plasma erythropoiet in (EPO) measurement (units/volume)Ordered By: Savana Whitfield on 12-06-2022 Erythropoietin (EPO) Qn 16.3 mIU/mL 2.6-18.5 [facility] Comment on above: [employer] DxI 800 Immunoassay SystemValues obtained with different assay methods or kits cannotbe used interchangeably. Results cannot be interpreted asabsolute evidence of the presence or absence of malignantdisease.Performed at: [facility] [id number] Director: Zohaib Virgen PhD, Phone: [phone] Serum or plasma glucose marilia urement (mass/volume)Ordered By: Savana Whitfield on 12-06-2022 Glucose [Mass/Vol] 124 mg/dL 70-100 [facility] Comment on above: ADA recommended refe rence rangeRandom Glucose Reference Range is dependent on time and content of last meal. Glucose of more than 200 mg/dL in a nonstressed, ambulatory subject supports the diagnosis of Diabetes Mellitus. Serum or plasma potassium me asurement (moles/volume)Ordered By: Savana Whitfield on 12-06-2022 Potassium [Moles/Vol] 4.2 mmol/L 3.5-5.1 [facility] Serum or plasma sodium measu rement (moles/volume)Ordered By: Savana Whitfield on 12-06-2022 Sodium [Moles/Vol] 134 mmol/L 136-146 [facility] Serum or plasma total biliru bin measurement (mass/volume)Ordered By: Savana Whitfield on 12-06-2022 Bilirubin [Mass/Vol] 0.3 mg/dL 0.3-1.2 [facility] Serum or plasma total carbon dioxide measurement (moles/volume)Ordered By: Savana Whitfield on 12-06-2022 CO2 [Moles/Vol] 24.9 mmol/L 22.0-30.0 [facility] Serum or plasma urea nitroge n measurement (mass/volume)Ordered By: Savana Whitfield on 12-06-2022 Urea nitrogen [Mass/Vol] 7 mg/dL 08-19 [facility] XR cervical spine 5V*on 09-28 XR cervical spine 5V* [facility] [address] [place] [address] XRay Report Signed Patient: Dinorah Tripp MR#: [id number] : 1980 Acct:[id number] Age/Sex: 41 / F ADM Date: 10/17/22 Loc: XDCLY Room: Type: [facility] Attending Dr: Greta TUCKER Copies to: GRETA NELSON Ordering Provider: GRETA NELSON Date of Service: 10/17/22 XR/XR cervical spine 5V*: M54.2 CERVICAL SPINE 7 views: CLINICAL HISTORY: Posterior neck pain for 2 weeks. COMPARISON: None FINDINGS: No acute bony process. Vertebral body heights appear maintained. Mild disc space narrowing C4-5. Scattered uncovertebral degenerative changes. Facet joints are grossly unremarkable. No prevertebral soft tissue swelling. XR/XR cervical spine 5V* IMPRESSION: MILD DEGENERATIVE CHANGES OF THE CERVICAL SPINE WITH MILD DISC SPACE NARROWING C4-5. Impression dictated by: Justus Garber Jr., D.O.10/17/2022 3:19 PM Dictation Location: [place] [address] Transcribed By: [facility] 10/17/22 1519 Dictated By: Justus Garber Jr, DO 10/17/22 1516 Signed By: 10/17/22 1519 Normal [facility] XR cervical spine 5V* [facility] [employer] Other XR cervical spine 5V* [facility] [employer] Other XR cervical spine 5V* [address] [facility] [employer] Other XR cervical spine 5V* [place] [address] [facility] [employer] Other XR cervical spine 5V* XRay Report No [facility] [employer] Other XR cervical spine 5V* Signed [employer] Other XR cervical spine 5V* Patient: Dinorah Tripp MR#: [id number] [employer] Other XR cervical spine 5V* [address] [employer] Other XR cervical spine 5V* : 1980 Acct:[id number] [employer] Other XR cervical spine 5V* Age/Sex: 41 / F ADM Date: 10/17/22 [employer] Other XR cervical spine 5V* [facility] Type: REG CLI [employer] Other XR cervical spine 5V* Attending Dr: Greta Nelson [facility] [employer] Other XR cervical spine 5V* Copies to: GRETA NELSON [employer] Other XR cervical spine 5V* Ordering Provider: GRETA NELSON [facility] [employer] Other XR cervical spine 5V* Date of Service: 10/17/22 [employer] Other XR cervical spine 5V* XR/XR cervical spine 5V*: M54.2 [employer] Other XR cervical spine 5V* CERVICAL SPINE 7 views: [employer] Other XR cervical spine 5V* CLINICAL HISTORY: Posterior neck pain for 2 weeks. [employer] Other XR cervical spine 5V* COMPARISON: None [employer] Other XR cervical spine 5V* FINDINGS: [facility] [employer] Other XR cervical spine 5V* No acute bony process. Vertebral body heights appear maintained. Mild disc space narrowing C4-5. [employer] Other XR cervical spine 5V* Scattered uncovertebral degenerative changes. Facet joints are grossly unremarkable. No [employer] Other XR cervical spine 5V* prevertebral soft tissue swelling. [employer] Other XR cervical spine 5V* XR/XR cervical spine 5V* [employer] Other XR cervical spine 5V* IMPRESSION: No rt [employer] Other XR cervical spine 5V* MILD DEGENERATIVE CHANGES OF THE CERVICAL SPINE WITH MILD DISC SPACE NARROWING C4-5. [employer] Other XR cervical spine 5V* Impression dictated by: Justus Garber Jr., D.O.10/17/2022 3:19 PM [employer] Other XR cervical spine 5V* Dictation Location: [place] [address] [employer] Other XR cervical spine 5V* Transcribed By: PWS 10/17/22 [facility] [employer] Other XR cervical spine 5V* Dictated By: Justus Garber Jr, DO 10/17/22 [facility] [employer] Other XR cervical spine 5V* Signed By: [facility] [employer] Other XR cervical spine 5V* 10/17/22 [facility] [employer] Other VITAMIN B1 (THIAMINE)on 08-28 Vit. B1, Whole Blood 141.0 nmol/L Normal 66.5-200.0 e [facility] Comment on above: Performed By: #### F ERR, VITB12, FETIBC #### [facility] [address] [place] [address] [address] Иван Dove VITAMIN B6on 09-18-2022 Vitamin B6 11.3 ug/L Normal 3.4-65.2 [facility] Comment on above: Result Comment: Defi ciency: <3.4 Marginal: 3.4 - 5.1 Adequate: >5.1 Performed By: #### F ERR, VITB12, FETIBC #### [facility] [address] [place] [address] Dr. Иван Dove TRANSFERRINon 09-16-2022 Transferrin [Mass/Vol] 331 mg/dL Normal 192-364 [facility] Comment on above: Performed By: #### T RANSFR #### [facility] [address] [place] [address] Dr. Иван Dove FERRITINon 09-15-2022 Ferritin [Mass/Vol] 22.0 ng/mL Normal 6.2-137.0 [facility] Comment on above: Performed By: #### F ERR, VITB12, FETIBC #### [facility] [address] [place] [address] Dr. Иван Dove IRON AND TIBCon 09-15-2022 % SATURATION 5.5 % Normal [facility] Comment on above: Performed By: #### F ERR, VITB12, FETIBC #### [facility] [address] [place] [address] Dr. Иван Dove Iron [Mass/Vol] 21.0 ug/dL Critically low 50.0-170.0 [facility] Comment on above: Performed By: #### F ERR, VITB12, FETIBC #### [facility] [address] [place] [address] Dr. Иван Dove TIBC DIRECT 381.0 ug/dL Normal 250.0-450.0 [facility] Comment on above: Performed By: #### F ERR, VITB12, FETIBC #### [facility] [address] [place] [address] Dr. Иван Dove VITAMIN B12on 09-15-2022 Cobalamin (Vitamin B12) [Mass/Vol] 432.0 pg/mL Normal 193.0-986.0 [facility] Comment on above: Performed By: #### F ERR, VITB12, FETIBC #### [facility] [address] [place] [address] Dr. Иван Dove DALY EIA W/REFLEX 5 BIOMARKER Son 08-09-2022 DALY Direct Negative Normal Negative [facility] Comment on above: Performed By: #### A NARF #### [facility] [facility] [address] [place] [address] Dr. Иван Dove LYME DISEASE AB EIA W REFLEX on 08-09-2022 Lyme Total Antibody,EIA Negative Normal Negative [facility] Comment on above: Result Comment: Lyme Antibody Negative No laboratory evidence of infection with B. burgdorferi (Lyme disease). Negative results may occur in patients recently infected (less than or equal to 14 days) with B. burgdorferi. If recent infection is suspected, repeat testing on a new sample collected in 7 to 14 days is recommended. Performed By: #### L YMA #### [facility] [address] [place] [address] Dr. Иван Dove RHEUMATOID FACTORon 08-09-20 22 RA Latex Turbid. 22.7 IU/mL Critically high <14.0 [facility] Comment on above: Performed By: #### F ERR, VITB12, FETIBC #### [facility] [address] [place] [address] Dr. Иван Dove CBC AUTO DIFFon 08-08-2022 BASO # 0.1 103/ul Normal 0.0-0.1 [facility] Comment on above: Performed By: #### F ERR, VITB12, FETIBC #### [facility] [address] [place] [address] Dr. Иван Dove Basophils/100 WBC (Bld) 0.8 % Normal 0.2-2.0 [facility] Comment on above: Performed By: #### F ERR, VITB12, FETIBC #### [facility] [address] [place] [address] Dr. Иван Dove EO # 0.4 103/ul Normal 0.0-0.7 [facility] Comment on above: Performed By: #### F ERR, VITB12, FETIBC #### [facility] [address] [place] [address] Dr. Иван Dove Eosinophils/100 WBC (Bld) 3.2 % Normal 0.9-7.0 [facility] Comment on above: Performed By: #### F ERR, VITB12, FETIBC #### [facility] [address] [place] [address] Dr. Иван Dove Erythrocyte distribution width (RBC) [Ratio] 15.7 % Critically high 11.0-15.0 [facility] Comment on above: Performed By: #### F ERR, VITB12, FETIBC #### [facility] [address] [address] [address] Иван Dove Hematocrit (Bld) [Volume fraction] 37.7 % Normal 36.0-48.0 [facility] Comment on above: Performed By: #### F ERR, VITB12, FETIBC #### [facility] [address] [place] [address] Dr. Иван Dove Hemoglobin (Bld) [Mass/Vol] 11.7 g/dL Critically low 12.0-16.0 [facility] Comment on above: Performed By: #### F ERR, VITB12, FETIBC #### [facility] [address] [place] [address] Dr. Иван Dove IG # 0.03 10e3/ul Normal 0.00-0.03 [facility] Comment on above: Performed By: #### F ERR, VITB12, FETIBC #### [facility] [address] [place] [address] Dr. Иван Dove IG % 0.3 % Normal 0.0-0.5 [facility] Comment on above: Performed By: #### F ERR, VITB12, FETIBC #### [facility] [address] [place] [address] Dr. Иван Dove LYMPH # 3.9 103/ul Critically high 1.2-3.8 [facility] Comment on above: Performed By: #### F ERR, VITB12, FETIBC #### [facility] [address] [address] [address] Иван Dove Lymphocytes/100 WBC (Bld) 33.1 % Normal 20.5-60.0 [facility] Comment on above: Performed By: #### F ERR, VITB12, FETIBC #### [facility] [address] [place] [address] Dr. Иван Dove MANUAL DIFF REQ NO Normal [facility] Comment on above: Performed By: #### F ERR, VITB12, FETIBC #### [facility] [address] [place] [address] Dr. Иван Dove MCH (RBC) [Entitic mass] 23.9 pg Critically low 26.7-34 .0 [facility] Comment on above: Performed By: #### F ERR, VITB12, FETIBC #### [facility] [address] [place] [address] Dr. Иван Dove MCHC (RBC) [Mass/Vol] 31.0 g/dL Normal 29.9-35.2 [facility] Comment on above: Performed By: #### F ERR, VITB12, FETIBC #### [facility] [address] [place] [address] Dr. Иван Dove MCV (RBC) [Entitic vol] 76.9 fL Critically low 81.0-99. 0 [facility] Comment on above: Performed By: #### F ERR, VITB12, FETIBC #### [facility] [address] [place] [address] Dr. Иван Dove MONO # 0.7 103/ul Normal 0.3-0.8 [facility] Comment on above: Performed By: #### F ERR, VITB12, FETIBC #### [facility] [address] [place] [address] Dr. Иван Dove Monocytes/100 WBC (Bld) 5.8 % Normal 1.7-12.0 [facility] Comment on above: Performed By: #### F ERR, VITB12, FETIBC #### [facility] [address] [place] [address] Dr. Иван Dove NEUT # 6.7 103/ul Critically high 1.4-6.5 [facility] Comment on above: Performed By: #### F ERR, VITB12, FETIBC #### [facility] [address] [address] [address] Иван Dove Neutrophils/100 WBC (Bld) 56.8 % Normal 43.0-75.0 [facility] Comment on above: Performed By: #### F ERR, VITB12, FETIBC #### [facility] [address] [place] [address] Dr. Иван Dove Platelet mean volume (Bld) [Entitic vol] 9.0 fL Critically low 9.5-13.5 [facility] Comment on above: Performed By: #### F ERR, VITB12, FETIBC #### [facility] [address] [address] [address] Иван Dove PLT 463 103/ul Critically high 150-450 [facility] Comment on above: Performed By: #### F ERR, VITB12, FETIBC #### [facility] [address] [place] [address] Dr. Иван Dove RBC 4.90 106/ul Normal 4.20-5.40 [facility] Comment on above: Performed By: #### F ERR, VITB12, FETIBC #### [facility] [address] [place] [address] Dr. Иван Dove WBC 11.7 103/ul Critically high 4.0-11.0 [facility] Comment on above: Performed By: #### F ERR, VITB12, FETIBC #### [facility] [address] [place] [address] Dr. Иван Dove CRPon 08-08-2022 CRP 1.0 mg/dL Normal <=1.0 [facility] Comment on above: Performed By: #### C RP #### [facility] [address] [place] [address] Dr. Иван Dove SED RATE WESTERGRENon 2021 SED RATE 29 mm/hr Critically high <=20 [facility] Comment on above: Performed By: #### F ERR, VITB12, FETIBC #### [facility] [address] [address] [address] Иван Dove GLYCOHEMOGLOBIN A1Con 2021 ADA RECOMMENDATION SEE BELOW Normal [facility] Comment on above: Result Comment: ADA RECOMMENDED LIMIT 4.0 - 6.0 ADA THERAPEUTIC TARGET < 7.0 ACTION SUGGESTED > 7.0 Performed By: #### F ERR, VITB12, FETIBC #### [facility] [address] [place] [address] Dr. Иван Dove Glucose [Mass/Vol] 108 mg/dL Normal [facility] Comment on above: Performed By: #### F ERR, VITB12, FETIBC #### [facility] [address] [place] [address] Dr. Иван Dove HbA1c (Bld) [Mass fraction] 5.4 % Normal 4.5-6.2 [facility] Comment on above: Performed By: #### F ERR, VITB12, FETIBC #### [facility] [address] [place] [address] Dr. Иван Dove LIPID PROFILEon 08-03-2022 CHOL-HDL RATIO NORM SEE BELOW Normal [facility] Comment on above: Result Comment: 3.3 - 4.4 LOW RISK 4.4 - 7.1 AVERAGE RISK 7.1 - 11.0 MODERATE RISK >11.0 HIGH RISK Performed By: #### T SH, LIPID, CMP #### [facility] [address] [place] [address] Dr. Иван Dove Cholesterol [Mass/Vol] 174 mg/dL Normal <=200 [facility] Comment on above: Performed By: #### T SH, LIPID, CMP #### [facility] [address] [place] [address] Dr. Иван Dove Cholesterol in HDL [Mass/Vol] 47 mg/dL Normal 40-60 [facility] Comment on above: Performed By: #### T SH, LIPID, CMP #### [facility] [address] [place] [address] Dr. Иван Dove Cholesterol in LDL [Mass/Vol] 109.8 mg/dL Normal [facility] Comment on above: Performed By: #### T SH, LIPID, CMP #### [facility] [address] [address] [address] Иван Dove Cholesterol.total/Choles terol in HDL [Mass ratio] 3.7 {ratio} Normal [facility] Comment on above: Performed By: #### T SH, LIPID, CMP #### [facility] [address] [address] [address] Иван Dove HDL NORMAL > or = 60 mg/dl - LOW CARDIOVASCULAR RISK <40 mg/dl - HIGH CARDIOVASCULAR RISK Normal [facility] Comment on above: Performed By: #### T SH, LIPID, CMP #### [facility] [address] [place] [address] Dr. Иван Dove LDL CALC NORMAL SEE BELOW Normal [facility] Comment on above: Result Comment: <100 mg/dl OPTIMAL 100 - 129 mg/dl NEAR OR ABOVE OPTIMAL 130 - 159 mg/dl BORDERLINE HIGH 160 - 189 mg/dl HIGH >190 mg/dl VERY HIGH Performed By: #### T SH, LIPID, CMP #### [facility] [address] [place] [address] Dr. Иван Dove Triglyceride [Mass/Vol] 86 mg/dL Normal <=150 [facility] Comment on above: Performed By: #### T SH, LIPID, CMP #### [facility] [address] [place] [address] Dr. Иван Dove VLDL CALC 17.2 mg/dL Normal [facility] Comment on above: Performed By: #### T SH, LIPID, CMP #### [facility] [address] [place] [address] Dr. Иван Dove PROF 14(COMP METB)on 022 Albumin [Mass/Vol] 3.5 g/dL Normal 3.4-5.0 [facility] Comment on above: Performed By: #### T SH, LIPID, CMP #### [facility] [address] [place] [address] Dr. Иван Dove Albumin/Globulin [Mass ratio] 0.9 {ratio} Normal [facility] Comment on above: Performed By: #### T SH, LIPID, CMP #### [facility] [address] [address] [address] Иван Dove ALP [Catalytic activity/Vol] 88 U/L Normal 46-116 [facility] Comment on above: Performed By: #### T SH, LIPID, CMP #### [facility] [address] [address] [address] Иван Dove ALT [Catalytic activity/Vol] 25 U/L Normal 14-59 [facility] Comment on above: Performed By: #### T SH, LIPID, CMP #### [facility] [address] [address] [address] Иван Dove Anion gap [Moles/Vol] 11.3 mmol/L Normal [facility] Comment on above: Performed By: #### T SH, LIPID, CMP #### [facility] [address] [address] [address] Иван Dove AST [Catalytic activity/Vol] 16 U/L Normal 15-37 [facility] Comment on above: Performed By: #### T SH, LIPID, CMP #### [facility] [address] [address] [address] Иван Dove Bilirubin [Mass/Vol] 0.4 mg/dL Normal 0.2-1.0 [facility] Comment on above: Performed By: #### T SH, LIPID, CMP #### [facility] [address] [address] [address] Иван Dove Calcium [Mass/Vol] 8.8 mg/dL Normal 8.5-10.1 [facility] Comment on above: Performed By: #### T SH, LIPID, CMP #### [facility] [address] [address] [address] Иван Dove Chloride [Moles/Vol] 102 mmol/L Normal 98-107 [facility] Comment on above: Performed By: #### T SH, LIPID, CMP #### [facility] [address] [address] [address] Иван Dove CO2 [Moles/Vol] 28.5 mmol/L Normal 21.0-32.0 [facility] Comment on above: Performed By: #### T SH, LIPID, CMP #### [facility] [address] [address] [address] Иван Dove Creatinine [Mass/Vol] 0.70 mg/dL Normal 0.55-1.02 [facility] Comment on above: Performed By: #### T SH, LIPID, CMP #### [facility] [address] [address] [address] Иван Dove EGFR-AF NAURUAN >60 Normal >=60 [facility] Comment on above: Performed By: #### T SH, LIPID, CMP #### [facility] [address] [address] [address] Иван Dove EGFR-NON AF NAURUAN >60 Normal >=60 [facility] Comment on above: Performed By: #### T SH, LIPID, CMP #### [facility] [address] [address] [address] Иван Dove Globulin (S) [Mass/Vol] 3.9 g/dL Normal [facility] Comment on above: Performed By: #### T SH, LIPID, CMP #### [facility] [address] [address] [address] Иван Dove Glucose [Mass/Vol] 87 mg/dL Normal 74-106 [facility] Comment on above: Performed By: #### T SH, LIPID, CMP #### [facility] [address] [address] [address] Иван Dove Potassium [Moles/Vol] 3.8 mmol/L Normal 3.5-5.1 [facility] Comment on above: Performed By: #### T SH, LIPID, CMP #### [facility] [address] [address] [address] Иван Dove Protein [Mass/Vol] 7.4 g/dL Normal 6.4-8.2 [facility] Comment on above: Performed By: #### T SH, LIPID, CMP #### [facility] [address] [address] [address] Иван Dove Sodium [Moles/Vol] 138 mmol/L Normal 136-145 [facility] Comment on above: Performed By: #### T ABRAHAM, LIPID, CMP #### [facility] [address] [address] [address] Иван Dove Urea nitrogen [Mass/Vol] 6.0 mg/dL Critically low 7.0-18. 0 [facility] Comment on above: Performed By: #### T ABRAHAM, LIPID, CMP #### [facility] [address] [address] [address] Иван Dove Urea nitrogen/Creatinine [Mass ratio] 8.6 mg/mg Normal [facility] Comment on above: Performed By: #### T ABRAHAM LIPID, CMP #### [facility] [address] [place] [address] Dr. Иван Dove TSHon 08-03-2022 TSH 1.508 uIU/mL Normal 0.358-3.740 [facility] Comment on above: Performed By: #### T ABRAHAM LIPID, CMP #### [facility] [address] [place] [address] Dr. Иван Dove Vital Signs Date Time Vital Sign Value Performing Clinician Facility 02-27-2023 12:00-0400 Body height 170.18 cm Imad Asaad Other [facility] Other 02-27-2023 12:00-0400 Body mass index (BMI) [Ratio] 39.78 kg/m2 Imad Asaad Other [facility] Other 02-27-2023 12:00-0400 Body weight 115.21 kg Imad Asaad Other [facility] Other 02-27-2023 12:00-0400 Diastolic blood pressure 90 mm[Hg] Imad Asaad Other [facility] Other 02-27-2023 12:00-0400 Systolic blood pressure 150 mm[Hg] Imad Asaad Other [facility] Other 01-24-2023 11:00-0500 Body height 170.18 cm Greta Bishopault Other [facility] Other 01-24-2023 11:00-0500 Body mass index (BMI) [Ratio] 40.4 kg/m2 Greta Bishopault Other [facility] Other 01-24-2023 11:00-0500 Body temperature 98.1 [degF] Greta Leslie Other [facility] Other 01-24-2023 11:00-0500 Body weight 117.03 kg Greta Leslie Other [facility] [employer] Other 01-24-2023 11:00-0500 Diastolic blood pressure 89 mm[Hg] Greta Bishopault Other [facility] Other 01-24-2023 11:00-0500 Respiratory rate 18 /min Greta Bishopault Other [facility] Other 01-24-2023 11:00-0500 SaO2% (BldA) [Mass fraction] 99 % Greta Leslie Other [facility] Other 01-24-2023 11:00-0500 Systolic blood pressure 154 mm[Hg] Greta Leslie Other [facility] Other 01-17-2023 11:50-0500 Body temperature 98 [degF] [employer] Greta Leslie Work Phone: [facility] 01-17-2023 11:50-0500 Body weight 117.6 kg [employer] Greta Bishopault Work Phone: [facility] 01-17-2023 11:50-0500 Diastolic blood pressure 114 mm[Hg] [employer] Greta Leslie Work Phone: [facility] 01-17-2023 11:50-0500 Heart rate 80 /min [employer] Greta Leslie Work Phone: [facility] 01-17-2023 11:50-0500 Respiratory rate 18 /min [employer] Greta Bishopault Work Phone: [facility] 01-17-2023 11:50-0500 SaO2% (BldA) [Mass fraction] 96 % [employer] Greta Bishopault Work Phone: [facility] 01-17-2023 11:50-0500 Systolic blood pressure 167 mm[Hg] [employer] Greta Bishopault Work Phone: [facility] 11-04-2022 11:05-0500 Body height 170.18 cm [employer] Greta Nelson Work Phone: [facility] 10-17-2022 12:00-0500 Body height 170.18 cm Greta Nelson Other [employer] Other 10-17-2022 12:00-0500 Body mass index (BMI) [Ratio] 40.56 kg/m2 Greta Nelson Other [facility] Other 10-17-2022 12:00-0500 Body temperature 98.1 [degF] Greta Bishopault Other [employer] Other 10-17-2022 12:00-0500 Body weight 117.48 kg Greta Leslie Other [employer] Other 10-17-2022 12:00-0500 Diastolic blood pressure 82 mm[Hg] Greta Nelson Other [employer] Other 10-17-2022 12:00-0500 Respiratory rate 18 /min Greta Nelson Other [facility] Other 10-17-2022 12:00-0500 SaO2% (BldA) [Mass fraction] 100 % Greta Nelson Other [employer] Other 10-17-2022 12:00-0500 Systolic blood pressure 171 mm[Hg] Greta Nelson Other [employer] Other 09-15-2022 12:30-0400 Body height 170.18 cm Greta Bishopault Other [employer] Other 09-15-2022 12:30-0400 Body mass index (BMI) [Ratio] 40.84 kg/m2 Greta Nelson Other [employer] Other 09-15-2022 12:30-0400 Body temperature 98 [degF] Greta Nelson Other [employer] Other 09-15-2022 12:30-0400 Body weight 118.3 kg Greta Nelson Other [employer] Other 09-15-2022 12:30-0400 Diastolic blood pressure 78 mm[Hg] Greta Leslie Other [employer] Other 09-15-2022 12:30-0400 Respiratory rate 18 /min Greta Bishopault Other [employer] Other 09-15-2022 12:30-0400 SaO2% (BldA) [Mass fraction] 100 % Greta Bishopault Other [employer] Other 09-15-2022 12:30-0400 Systolic blood pressure 135 mm[Hg] Greta Bishopault Other [employer] Other 08-08-2022 12:30-0400 Body height 170.18 cm Greta Bishopault Other [employer] Other 08-08-2022 12:30-0400 Body mass index (BMI) [Ratio] 39.93 kg/m2 Greta Bishopault Other [employer] Other 08-08-2022 12:30-0400 Body temperature 97.6 [degF] Greta Bishopault Other [employer] Other 08-08-2022 12:30-0400 Body weight 115.67 kg Greta Bishopault Other [employer] Other 08-08-2022 12:30-0400 Diastolic blood pressure 73 mm[Hg] Greta Leslie Other [employer] Other 08-08-2022 12:30-0400 Respiratory rate 18 /min Greta Bishopault Other [employer] Other 08-08-2022 12:30-0400 SaO2% (BldA) [Mass fraction] 99 % Greta Leslie Other [employer] Other 08-08-2022 12:30-0400 Systolic blood pressure 150 mm[Hg] Greta Nelson Other [employer] Other 06-27-2022 11:00-0400 Body height 170.18 cm Greta Nelson Other [employer] Other 06-27-2022 11:00-0400 Body mass index (BMI) [Ratio] 40.28 kg/m2 Greta Nelson Other [employer] Other 06-27-2022 11:00-0400 Body temperature 98.1 [degF] Greta Nelson Other [employer] Other 06-27-2022 11:00-0400 Body weight 116.67 kg Greta Nelson Other [employer] Other 06-27-2022 11:00-0400 Diastolic blood pressure 97 mm[Hg] Greta Nelson Other [employer] Other 06-27-2022 11:00-0400 Respiratory rate 18 /min Greta Nelson Other [employer] Other 06-27-2022 11:00-0400 SaO2% (BldA) [Mass fraction] 98 % Greta Nelson Other [employer] Other 06-27-2022 11:00-0400 Systolic blood pressure 172 mm[Hg] Greta Nelson Other [employer] Other Encounters Encounter Date Encounter Type Care Provider Facility Start: 08-10-2023 ambulatory Ethan crespo II Facility:[facility] Start: 02-27-2023 End: 02-27-2023 ambulatory Imad Asaad Other [employer] Other Start: 02-27-2023 Office outpatient ne w 45 minutes Imad Asaad [facility] Start: 02-01-2023 End: 02-01-2023 ambulatory Greta Bishopault Other [employer] Other Start: 02-01-2023 Encounter by [employer] Greta Nelson [facility] Start: 01-24-2023 End: 01-24-2023 ambulatory Greta Leslie Other [employer] Other Start: 01-24-2023 Office outpatient visit 25 minutes Greta Leslie [facility] Start: 01-17-2023 End: 01-17-2023 ambulatory [employer]URE [employer] Greta Leslie Work Phone: [facility] Work Phone: Start: 01-17-2023 End: 01-17-2023 Registered Recurring [employer]ITURE INST[employer]ER[employer] Greta Leslie Work Phone: [facility] Work Phone: Start: 01-02-2023 End: 01-02-2023 ambulatory Greta Leslie Other [employer] Other Start: 01-02-2023 Telephone encounter Greta camacho [facility] Start: 12-02-2022 End: 12-02-2022 ambulatory Greta Leslie Other [employer] Other Start: 12-02-2022 Encounter by [employer] Greta Leslie [facility] Start: 12-01-2022 End: 12-01-2022 ambulatory Greta Nelson Other [employer] Other Start: 12-01-2022 Encounter by compute r link Greta Nelson [facility] Start: 2022 End: 2022 ambulatory Greta Nelson Other [employer] Other Start: 2022 Telephone encounter Gretaaren Elizondol t [facility] Start: 10-17-2022 End: 10-17-2022 ambulatory PHYSICIAN NO FAMILY Facility:[facility] Start: 10-17-2022 Office outpatient visit 25 minutes Greta Bishopault [facility] Start: 10-17-2022 End: 10-17-2022 ambulatory [employer] Greta Nelson Work Phone: [facility] Work Phone: Start: 10-17-2022 End: 10-17-2022 Patient encounter procedure [employer]URE IN[employer]ER[employer] Greta Bishopault Work Phone: [facility] Start: 09-20-2022 End: 09-20-2022 ambulatory Greta Nelson Other [employer] Other Start: 09-20-2022 Encounter by [employer] r link Greta Nelson [facility] Start: 09-15-2022 End: 09-16-2022 ambulatory GRETA BISHOPAULT [employer] Other Start: 09-15-2022 Office outpatient visit 25 minutes Greta Bishopault [facility] Start: 08-15-2022 End: 08-15-2022 ambulatory Greta Bishopault Other [employer] Other Start: 08-15-2022 Telephone encounter Greta camacho [facility] Start: 08-12-2022 End: 08-12-2022 ambulatory Greta Leslie Other [employer] Other Start: 08-12-2022 Encounter by compute r link Greta Bishopault [facility] Start: 08-08-2022 End: 08-09-2022 ambulatory GRETA NELSON [facility] Other Start: 08-08-2022 Office outpatient visit 25 minutes Greta Leslie [facility] Start: 08-07-2022 Encounter for genera l adult medical examination without abnormal findings GRETA LESLIE [facility] Start: 08-03-2022 End: 08-04-2022 ambulatory GRETA LESLIE Facility: Start: 08-03-2022 End: 08-04-2022 Encounter for general adult medical examination without abnormal findings GRETA LESLIE Facility: Start: 06-29-2022 End: 06-29-2022 ambulatory Greta Nelson Other [employer] Other Start: 06-29-2022 Telephone encounter Greta camacho [facility] Start: 06-28-2022 End: 06-28-2022 ambulatory Greta Nelson Other [employer] Other Start: 06-28-2022 Telephone encounter Greta camacho [facility] Start: 06-27-2022 End: 06-27-2022 ambulatory GRETA NELSON [facility] Other Start: 06-27-2022 Encounter for genera l adult medical examination without abnormal findings Greta Leslie [facility] Start: 06-27-2022 Initial preventive medicine new patient 40-64yrs Greta Leslie [facility] Start: 06-27-2022 End: 06-27-2022 Patient encounter procedure [employer]ITURE INST[employer]ER[employer]C Greta Nelson Work Phone: [facility] Procedures Date Procedure Procedure Detail Performing Clinician Start: 10-17-2022 X-ray of cervical spine [employer]URNITURE INST[employer] Greta Nelson Work Phone: Start: 06-27-2022 Plain 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 Greta Nelson Work Phone: Plan of Treatment Date Care Activity Detail Author Start: 12-20-2022 [facility] Start: 12-12-2022 End: 12-13-2022 [facility] Start: 12-07-2022 [facility] Start: 12-07-2022 [facility] Comprehensive metabo lic 2000 panel - Serum or Plasma [facility] Ferritin [Mass/volum e] in Serum or Plasma [facility] Payers Date Payer Category Payer Private Health Insurance [id number] 1978 Unknown [id number] 2.16.84 [id number] 1978 Unknown [id number] 2.16.84 [id number] 1978 Unknown [id number] 2.16.84 [id number] 1978 Unknown [id number] 2.16.84 [id number] 1959 Private Health Insurance [id number] 1961 Self-pay Unknown [id number] 2.16.8 [id number] Unknown [id number] 2.16.8 [id number] Social History Date Type Detail Facility Sex Assigned At [facility] Work Phone: Start: 1980 Sex Assigned At Female F [facility] Start: 01-17-2023 [facility] Clinical Notes 06-27-2022 to 02-27-2023 Note Date & Type Note Facility 02-27-2023 Evaluation note Encounter Date Diagnosis Assessment Notes Feb, Iron deficiency anemia, unspecified iron deficiency anemia type (ICD-10 - D50.9) patient has done iron infusions with little improvement. patient denies any blood in stools or dark stools. will proceed with EGD/Colon Feb, Abdominal cramping (ICD-10 - R10.9) [employer] Other 04-02-2023 History general Narrative - Reported* Type Description Date Medical History asthma Medical History acid reflux Medical History pressure uticaria Medical History cholecystecomy Medical History fatty liver Medical History sun allergy Surgical History cholecystectomy Surgical History eye surgery as a child, had a l coy eye Hospitalization History see above [employer] Other 02-28-2023 Evaluation note* Encounter Date Diagnosis Assessment Notes Treatment Notes Treatment Clinical Notes Dec, Primary hypertension (ICD-10 - I10) Increased dose as instructed and patient is okay with this. Has follow up with gastro and we will plan to discuss options after that is completed. [employer] Other 02-06-2023 Evaluation note* Encounter Date Diagnosis Assessment Notes Treatment Notes Treatment Clinical Notes Dec, Primary hypertension (ICD-10 - I10) [employer] Other 12-16-2022 Consult note Author Savana Whitfield [facility] November 11, 2022 12:44pm Note Date/Time November 04, 2022 1 1:23am [facility] [place] [id number] Hem/Onc Consult Note - OP Signed Patient: Dinorah Tripp MR#: [id number] : 1980 Acct:[id number] Age/Sex: 41 / F Type: REG RCR Copies to: GRETA NELSON~ HPI Date/Time of Service: Date of Service: 11/04/2022 Time of Service: 11:22 Referring Provider/PCP: Referring Provider: CAITLIN Blevins PCP: CAITLIN Blevins - History of Present Illness Reason for Consultation: Iron deficiency anemia Chief Complaint: Patient is here today for a referral for iron deficiency anemiafrom [employer] [facility] HPI: Dinorah is a 41-year-old female former smoker with a history of acid reflux, asthma, HTN and pressure urticaria. Surgical history includes cholecystectomy and eye surgery as a child. Her only medication is metoprolol succinate. She hasno personal or family history of cancer. She is referred to us for her iron deficiency anemia. Most recent labs reveal hgb 11.7, ferritin 22, iron level 21 and iron saturation 5.5%. Her WBC are mildly elevated at 11.7 and plt 463,000 as well. ESR mildly elevated at 29, DALY neg, CRP and TSH WNL. Chemistries with normal creatinine and calcium. On exam, she feels fatigued and has trouble with sleeping. She denies shortness of breath or chest pain. She notes she constantly feels cold. She denies dark/tarry stool, n/v/d, constipation, numbness, tingling, fevers, chills, sweats, weight loss or other complaints. She has never had a colonoscopy or EGD.She notes her periods are not heavy and only last 3-4 days each month. [facility] - Medical History Medical History: Medical History (Last Reviewed 11/04/22 @ 11:13 by Elida Neil) Acid reflux Asthma Pressure urticaria - Surgical History Surgical History: Surgical History (Last Reviewed 11/04/22 @ 11:13 by Elida Neil) History of cholecystectomy History of eye surgery - Family History Family History: Family History (Last Reviewed 11/04/22 @ 11:13 by Elida Neil) Father Diabetes FH: mental illness Mother Hypertension - Social History Smoking Status: Former smoker Tobacco Type: cigarettes Substance Use Type: None Home Medications & Allergies Allergies No Known Allergies Allergy (Verified 11/04/22 11:13) Home Medications metoprolol succinate 25 mg tablet,extended release 24 hr 25 mg PO DAILY 11/03/22[History Confirmed 11/04/22] Objective - Height/Weight Height/Weight: Height 5 ft 7 in Weight 117.5 kg - Vital Signs Vital Signs: 11/04/22 11:18 Temperature 97.0 F L Pulse Rate [Left Brachial] 89 Respiratory Rate 16 Blood Pressure [Left Arm] 165/95 H 02 Sat by Pulse Oximetry 95 Oxygen Delivery Method Room Air Physical Exam Narrative: CONSTITUTIONAL: The patient is in no acute distress. HEAD / FACE: Normocephalic. EYES: Pupils are equal and reactive to light. Conjunctivae and lids are benign in appearance. Ocular movement intact. EARS: Hearing grossly intact. NOSE / MOUTH / THROAT: Nose, mouth, tongue and oropharynx are benign in appearance. No signs of inflammation. NECK / THYROID: Neck is supple. Thyroid is symmetrical, without thyromegaly, masses or palpable nodules. LYMPHATIC: No palpable cervical, supraclavicular, axillary, or inguinal adenopathy. RESPIRATORY: Normal to inspection. Lungs clear to auscultation and percussion. No wheezing, rales, rhonchi or rubs. Normal effort. CARDIOVASCULAR: Regular rate and rhythm. No murmurs, gallops, or rubs. ABDOMEN: Bowel sounds normoactive. Soft, nontender, non-distended. No splenomegaly. No palpable masses. INTEGUMENTARY: The skin is unremarkable. No rashes. No suspicious lesions MUSCULOSKELETAL: Normal musculature, no joint deformities or abnormalities, normal range of motion for all four extremities. EXTREMITIES: No edema, cyanosis or clubbing. NEUROLOGICAL: Alert and oriented. Cranial nerves intact. No gross motor or sensory deficits. PSYCHIATRIC: No anxiety or evidence of depression. Assessment and Plan (1) Iron deficiency anemia Iron deficiency anemia unclear source of blood loss She denies dark, tarry stool. Never had colonoscopy or EGD. Menstrual cycle is light/normal She previously did not tolerate oral iron in the past due to GI upset- constipation and nausea. Will plan to replete with IV Venofer 300mg x 3 doses Platelets most likely reactive to iron deficiency anemia, possibly wbc count as well will continue to monitor these with labs to ensure these normalize with iron repletion. No additional work-up needed at this time. - Time with Patient Coordination of Care & Counseling Time: Greater than 50% of time spent with patient was for coordination of care (as documented) and [id number] counseling of patient and/or family. Dictated By: Savana Whitfield APRN DD/ 1122 Signed By: <Electronically signed by JENISE Whitfield> 11/11/22 37[address] [facility] Work Phone: [phone] 143-368411-21-2022 Evaluation note* Encounter Date Diagnosis Assessment Notes Treatment Notes Treatment Clinical Notes Sep, Primary hypertension (ICD-10 - I10) Patient has white coat syndrome - her blood pressures at home are much better. Sep, Cervical pain (neck) (ICD-10 - M54.2) Sep, Iron deficiency anemia, unspecified iron deficiency anemia type (ICD-10 - D50.9) Referral sent to specialist as discussed. [employer] Other 10-20-2022 Evaluation note* Encounter Date Diagnosis Assessment Notes Treatment Notes Treatment Clinical Notes Aug, Pressure urticaria (ICD-10 - L50.9) Recommend labs completed before starting medications today as they may alter the results. Patient states understanding Aug, Primary hypertension (ICD-10 - I10) Increased medication as discussed and printed off information on Dash diet from [employer] [facility] Aug, Allergic contact dermatitis due to photocontact other than sunburn, current (ICD-10 - L59.8) Aug, Anemia, unspecified type (ICD-10 - D64.9) Discussed previous labs. New labwork ordered as we discussed and will start from there Aug, Rheumatoid factor positive (ICD-10 - R76.8) Referral sent as we discussed due to medical history and labs. [employer] Other 09-12-2022 Evaluation note* Encounter Date Diagnosis Assessment Notes Treatment Notes Treatment Clinical Notes Jul, Follow-up exam (ICD-10 - Z09) Discussed all test results in office today and what further steps are needed. Patient states understanding. Jul, Bronchitis (ICD-10 - J40) Take medications as directed. Rest and increase fluid intake. Take meds with food to prevent stomach upset. Use inhaler as needed for coughing spells and SOB. It is better to use inhaler a few times a day over the next 2-3 days. Jul, Pressure urticaria (ICD-10 - L50.9) Recommend labs completed before starting medications today as they may alter the results. Patient states understanding Jul, Allergic contact dermatitis due to photocontact other than sunburn, current (ICD-10 - L59.8) Jul, Fungal toenail infection (ICD-10 - B35.1) Jul, Primary hypertension (ICD-10 - I10) Today during the appointment we discussed labwork to check on how your kidneys are functioning since you have high blood pressure. It is important for us to make sure we protect your kidneys since vision, kidneys and blood circulation are all effected by high blood pressure. It may take us a couple of visits to get your blood pressure in a healthy range and once we do we can space them out a lot more. In addition to medication prescribed we will also talk about healthy changes you can try. Also we will check other labs yearly to screen for other issues. Please remember we are a team and your opinion is very important in all of your healthcare decisions [employer] Other 08-01-2022 Evaluation note* Encounter Date Diagnosis Assessment Notes Treatment Notes Treatment Clinical Notes Jun, Injury of toe on right foot, initial encounter (ICD-10 - S99.921A) Follow up with ortho is needed since toe is dislocated and needs further treatment Jun, Wellness examination (ICD-10 - Z00.00) Today we ordered some labs and discussed screenings. We will discuss results once we get them and go from there. 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 Jun, Weight gain (ICD-10 - R63.5) [employer] Other Evaluation noteNo InformationNort [employer] Other Evaluation noteNo assessment information available [facility] Work Phone: Evaluation note* Diagnosis Onset Date Resolution Status Iron deficiency anemia acute [facility] Work Phone: History general Narrative - Reported* Type Description Date Medical History asthma Medical History acid reflux Surgical History cholecystectomy Surgical History eye surgery as a child, had a l azy eye [employer] Other History general Narrative - Reported* Type Description Date Medical History asthma Medical History acid reflux Medical History pressure uticaria Surgical History cholecystectomy Surgical History eye surgery as a child, had a l azy eye Hospitalization History see above [employer] Other Progress note Author Ethan Alfaro [facility] January 17, 2023 12:17pm Note Date/Time January 17, 2023 12:07pm [facility] [place] [address] Hem/Onc Follow Up Note - OP Signed Patient: Dinorah Tripp MR#: [id number] : 1980 Acct:[id number] Age/Sex: 42 / F Type: REG RCR Copies to: GRETA NELSON~ Date of Service: 01/17/2023 Time of Service: 12:06 - Assessment & Plan (1) Iron deficiency anemia Plan: Iron deficiency anemia unclear source of blood loss She denies dark, tarry stool. Never had colonoscopy or EGD. Menstrual cycle is light/normal She previously did not tolerate oral iron in the past due to GI upset- constipation and nausea. Will plan to replete with IV Venofer 300mg x 3 doses Platelets most likely reactive to iron deficiency anemia, possibly wbc count as well will continue to monitor these with labs to ensure these normalize with iron repletion. No additional work-up needed at this time. Follow Up Instructions: refer to GI for blood loss anemia. q3mos cbc, cmp, iron studies. f/u in a year. get notes from Dr. Morgan in [facility] prior to f/u. - History of Present Illness Chief Complaint: Patient is here for a 2 month follow up, lamar seen by [facility]. Had labs 01/16/2023. NO concerns. HPI: Dinorah is a 41-year-old female former smoker (quit in ) with a history of acid reflux, asthma, HTN and pressure urticaria. Developed panic attacks in early 40s with depression. Surgical history includes cholecystectomy and eye surgery as a child. Her only medication is metoprolol succinate. She has no personal or family history of cancer. She is referred to us for her iron deficiency anemia. Most recent labs reveal hgb 11.7, ferritin 22, iron level 21 and iron saturation 5.5%. Her WBC are mildly elevated at 11.7 and plt 463,000 as well. ESR mildly elevated at 29, DALY neg, CRP and TSH WNL. Chemistries with normal creatinine and calcium. On exam, she feels fatigued and has trouble with sleeping. She denies shortness of breath or chest pain. She notes she constantly feels cold. She denies dark/tarry stool, n/v/d, constipation, numbness, tingling, fevers, chills, sweats, weight loss or other complaints. She has never had a colonoscopy or EGD.She notes her periods are not heavy and only last 3-4 days each month uses pads,usually medium pads and a few pads last all day. She has upcoming appt with a rhumatologist Dr. Eddie piña in [place] for autoimmune workup. - Physical Exam CONSTITUTIONAL: The patient is in no acute distress. HEAD / FACE: Normocephalic. EYES: Pupils are equal and reactive to light. Conjunctivae and lids are benign in appearance. Ocular movement intact. EARS: Hearing grossly intact. NOSE / MOUTH / THROAT: Nose, mouth, tongue and oropharynx are benign in appearance. No signs of inflammation. NECK / THYROID: Neck is supple. Thyroid is symmetrical, without thyromegaly, masses or palpable nodules. LYMPHATIC: No palpable cervical, supraclavicular, axillary, or inguinal adenopathy. RESPIRATORY: Normal to inspection. Lungs clear to auscultation and percussion. No wheezing, rales, rhonchi or rubs. Normal effort. CARDIOVASCULAR: Regular rate and rhythm. No murmurs, gallops, or rubs. ABDOMEN: Bowel sounds normoactive. Soft, nontender, non-distended. No splenomegaly. No palpable masses. INTEGUMENTARY: The skin is unremarkable. No rashes. No suspicious lesions MUSCULOSKELETAL: Normal musculature, no joint deformities or abnormalities, normal range of motion for all four extremities. EXTREMITIES: No edema, cyanosis or clubbing. NEUROLOGICAL: Alert and oriented. Cranial nerves intact. No gross motor or sensory deficits. PSYCHIATRIC: No anxiety or evidence of depression. - Time with Patient Coordination of Care & Counseling Time: Greater than 50% of time spent with patient was for coordination of care (as documented) and [id number] counseling of patient and/or family. [facility] - Medical History Medical History: Medical History (Last Reviewed 11/04/22 @ 11:13 by Elida Neil) Acid reflux Asthma Pressure urticaria - Surgical History Surgical History: Surgical History (Last Reviewed 11/04/22 @ 11:13 by Elida Neil) History of cholecystectomy History of eye surgery - Family History Family History: Family History (Last Reviewed 11/04/22 @ 11:13 by Elida Neil) Father Diabetes FH: mental illness Mother Hypertension - Social History Smoking Status: Former smoker Tobacco Type: cigarettes Substance Use Type: None Additional Data - Additional Objective Data Height/Weight: Height 5 ft 7 in Weight 117.6 kg Vital Signs: 01/17/23 11:50 Temperature 98 F Pulse Rate [Left Brachial] 80 Respiratory Rate 18 Blood Pressure [Left Arm] 167/114 H 02 Sat by Pulse Oximetry 96 Oxygen Delivery Method Room Air - Lab Results Diagram of Most Recent CBC and CMP 01/16/23 17:52 12/06/22 12:40 Labs - Last 7 Days 01/16/23 17:52: Iron 57, TIBC 333, Iron Saturation 17.1 L, Transferrin 238, Ferritin 113.5 01/16/23 17:52: Corrected WBC 13.3 H, Uncorrected WBC Count 13.3 H, RBC 5.00, Hgb 12.6, Hct 39.1, MCV 78.1 L, MCH 25.3, MCHC 32.4, RDW 19.7 H, Plt Count 388, MPV 7.1, Neut % (Auto) 61.8, Lymph % (Auto) 31.5, Collier % (Auto) 4.6, Eos % (Auto) 1.6, Baso % (Auto) 0.5, Nucleat RBC Rel Count 0.1, Neut # (Auto) 8.2 H, Lymph # (Auto) 4.2, Collier # (Auto) 0.6, Eos # (Auto) 0.2, Baso # (Auto) 0.1 - Home Medications and Allergies Allergies/Adverse Reactions: Allergies No Known Allergies Allergy (Verified 11/04/22 11:13) Home Medications: Home Medications metoprolol succinate 25 mg tablet,extended release 24 hr 25 mg PO DAILY 12/08/22[History Confirmed 01/17/23] Dictated By: Ethan Alfaro II, DO DD/ 1206 Signed By: <Electronically signed by Ethan Alfaro II, DO> 01/17/23 1217 [facility] Work Phone: Reason for visit NarrativeRheumatology Referral Update [facility] [employer] Other Chief Complaint and Reason for Visit Chief Complaint S99.929X Chief Complaint Iron Deficiency Anem ia Reason for Visit Iron deficiency anem ia Advance Directives No Advanced Directives Records Found Advance Directive Response Recorded Date/ Time Advance Directives No July 01 10:10am Advance Directive Response Recorded Date/ Time Advance Directives No July 01 9:10am Reason for Referral Reason *FU 11/04 chronic anemia Diagnosis 1 Iron deficiency anem ia, unspecified iron deficiency anemia type (D50.9) Referral Organization [facility] Family Brit Fernandez Referring Provider First Name Greta Referring Provider Last Name Leslie Referring Provider Specialty Nurse Pract milo Referred Organization [facility] Referred Provider Ethan Alfaro II Referred Address ,[place], [place],[address] Referred Provider Specialty Hematology Referral Priority Routine General Notes [facility][1] 12:54:03 PM >Received today and waiting for office notes to be locked before sending referral [facility][1] 10/27/2022 11:28:58 AM >Referral was fax Reason *FU 09/22 Patient has history of pressure Uticaria, sun sensivity and RH positive - can she go to [facility] area Diagnosis 1 Rheumatoid factor po sitive (R76.8) Diagnosis 2 Allergic contact mariaelena matitis due to photocontact other than sunburn, current (L59.8) Diagnosis 3 Pressure urticaria ( L50.9) Referral Organization [facility] Referring Provider First Name Greta Referring Provider Last Name Leslie Referring Provider Specialty Nurse Pract milo Referred Organization [facility] Referred Provider Stephen Chow Referred Address [address],[place],[address] Referred Provider Specialty Rheumatology Referral Priority Routine [facility] 03:16:46 PM >Received today and fax referral Summary Purpose Family History No Family History Records Found Relationship Condition Age at Onset Recorded Date/T ramses father Diabetes mellitus Unknown Family history of mental disorder Unknown Not Specified Hypertension Unknown Additional Source Comments REASON FOR VISIT (unrecogniz ed section and content) EST CARENo InformationNo Inf ormation1 MONTH FOLLOW UP, Jim Lab/Test Follow upNo InformationMetoprololF/U, Jim HypertensionNail fungusFOLLOW UP, Jim HypertensionCan you refer/recommend any practice?HeadacheNo InformationFOLLOW UP; WEIGHT, BP, Jim HypertensionFollow RANDY/DR ALFARO REFERRED Care Teams (unrecognized sec tion and content) Team Status: Inactive Member Role Status Dates CAITLIN Blevins Attending Provider Active Team Status: Active Member Role Status Dates Savana Whitfield APRN Attending Provider CAITLIN Willett Primary Care Provider, Refer ring Provider Active Team Status: Active Member Role Status Dates CAITLIN Blevins Primary Care Provider Active Goals (unrecognized section and content) Goals may be documented in a n alternate section INFORMATION SOURCE (unrecogn ized section and content) DATE CREATED AUTHOR 10/14/2022 [facility] DATE CREATED AUTHOR AUTHOR'S ORGANIZ ATION 08/12/2023 [facility] FOR RECORDS PERTAINING TO PATIENTS WHO ARE OR HAVE BEEN ENROLLED IN A CHEMICAL DEPENDENCY/SUBSTANCEABUSE PROGRAM, SOME INFORMATION MAY BE OMITTED. This clinical summary was aggregated from multiple sources. Caution should be exercised in using it in the provision of clinical care. This summary normalizes information from multiple sources, and as a consequence, information in this document may materially change the coding, format and clinical context of patient data. In addition, data may be omitted in some cases. CLINICAL DECISIONS SHOULD BE BASED ON THE PRIMARY CLINICAL RECORDS. [employer] provides no warranty or guarantee of the accuracy or completeness of information in this document.
[2024-01-18 11:02] LABS: Alanine Aminotransferase 53 U/L (14-59); Albumin Globulin Ratio 0.8; Albumin Level 3.2 g/dL (3.4-5.0); Alkaline Phosphatase 83 U/L (46-116); Anion Gap 13.9; Aspartate Amino Transferase 34 U/L (15-37); BUN Creatinine Ratio 11.3; Bilirubin Total 0.4 mg/dL (0.2-1.0); Calcium 8.7 mg/dL (8.5-10.1); Carbon Dioxide 27.1 mmol/L (21.0-32.0); Chloride 107 mmol/L (98-107); Chol HDL Ratio 3.5; Cholesterol 181 mg/dL (<=200); Estimated GFR (African America >60 (>=60); Estimated GFR (Non-African Ame >60 (>=60); Glucose 92 mg/dL (74-106); HDL Cholesterol 51 mg/dL (40-60); LDL Cholesterol Calculated 110.6 mg/dL; Sodium 144 mmol/L (136-145); Total Protein 7.2 g/dL (6.4-8.2); Triglycerides 97 mg/dL (<=150); VLDL CHOLESTEROL 19.4 mg/dL
[2024-01-18 11:40] LABS: Estimated Average Glucose 105 mg/dL; Glycohemoglobin A1C 5.3 % (4.5-6.2)
[2024-01-19 10:09] LABS: Insulin 31.3 uIU/mL (2.6-24.9)
== END 2024-01-18 08:36 | disposition home or self-care (01) ==
LOC: LAB 08:37
PROVIDERS: PCP Nurse Practitioner Family; Visit Provider Nurse Practitioner Family
DX: R63.5 Abnormal weight gain (principal); I10 Essential (primary) hypertension
CPT/HCPCS: 36415; 80053; 80061; 83036; 83525

== ENCOUNTER 2024-07-16 10:36 | Outpatient (OUT) | payer OTHER, SELFPAY ==
--- OUTSIDE RECORDS SUMMARY | 2024-07-16 10:56 | XMS_ITS | CCD ---
Author Organization [facility] Care Team Providers Care Dewaterer Operator Name Role Phone Greta Nelson Unavailable LESLIE, GRETA Admitting Unavailable LESLIE, GRETA Attending Unavailable LESLIE, GRETA Primary Care Unavailable LESLIE, GRETA Consulting Unavailable LESLIE, GRETA Admitting Unavailable LESLIE, GRETA Attending Unavailable LESLIE, GRETA Primary Care Unavailable LESLIE, GRETA Consulting Unavailable LESLIE, GRETA Admitting Unavailable LESLIE, GRETA Attending Unavailable LESLIE, GRETA Primary Care Unavailable LESLIE, GRETA Consulting Unavailable LESLIE, GRETA Admitting Unavailable LESLIE, GRETA Attending Unavailable Leslie, ASSEMBLER SEMICONDUCTOR-C Greta Attending Provider [phone] JENISE Whitfield Attending Provider FAM eNlson-Herbert Hernandes Primary Care Provider FAM Nelson-Herbert Hernandes Referring Provider Asaad, Imad Unavailable Savana Whitfield Attending Unavail able Leslie, Greta Primary Care Unavailable Leslie, Greta Referring Unavailable Savana Whitfield Admitting Unavail able LESLIE, MARBELLA Mckeon Attending Unavail able LESLIE, MARBELLA Mckeon Admitting Unavail able LESLIE, MARBELLA Mckeon Attending Unavail able LESLIE, MARBELLA Mckeon Admitting Unavail able LESLIE, MARBELLA Mckeon Attending Unavail able LESLIE, MARBELLA Mckeon Admitting Unavail able Allergies Allergy Classification Reported Allergen(s) Allergy Type Date of Onset Reaction(s) Facility (1 source) [facility]; Translations: [CODEINE] Drug Allergy 05-31-2016 [facility] Medications Current Medications Medication Drug Class(es) Dates Sig (Normalized) Sig (Original) [id number] 200 actuat albuterol 0.09 mg/actuat metered dose [...] extended release oral tablet (3 sources) Uncompetitive Q-qxsieu-V-[place]part[place] te Receptor Antagonist, Sigma-1 Agonist Start: 08-08-2022 [...] 30 day(s) Jul, Active polyethylene glycol 3350 136727 mg / potassium chloride 2970 mg / sodium bicarbonate 6740 mg / sodium chloride 5860 mg / sodium sulfate 98975 mg powder for oral solution (1 source) [...] unspecified; Translations: [Iron deficiency anemia, unspecified] Onset: 02-15-2024 Episodic Essential hypertension (18 sources) Essential hypertension; Translations: [Essential (primary) hypertension] Onset: 08-08-2022 Resolved: 08-08-2022 Chronic Immunizations and screening for infectious disease (2 sources) Other specified abnormal immunological findings in serum; Translations: [Encounter for screening for infections with a predominantly sexual mode of transmission] Onset: 07-10-2024 Episodic Other female genital disorders (1 source) Personal history of other diseases of the female genital tract; Translations: [Personal history of other diseases of the female genital tract] Onset: 07-10-2024 Episodic Other nutritional; endocrine; and metabolic disorders (2 sources) Abnormal weight gain; Translations: [ABNORMAL WEIGHT GAIN] Onset: 06-27-2022 Resolved: 06-27-2022 Episodic Other screening for suspected conditions (not mental disorders or infectious disease) (1 source) Encounter for screening mammogram for malignant neoplasm of breast; Translations: [Encounter for screening mammogram for malignant neoplasm of breast] Onset: 07-10-2024 Episodic Spondylosis; intervertebral disc disorders; other back problems (1 source) Cervicalgia Episodic Unclassified (1 source) Gynecologic Exam Onset: 07-10-2024 Past or Other Problems Problem Classification Problem [...] initial encounter Onset: 06-27-2022 Resolved: 06-27-2022 Episodic Results Test Name Value Interpretation Reference Range Facility CBC w/ Auto Diffon 4 Basophils/100 WBC (Bld) 0.6 % Normal 0.0-2.0 [facility] Comment on above: Performed By: #### 2 [id number] #### [facility] [address] [place] [address] Basophils/Leukocytes Auto (Bld) [Pure # fraction] 0.1 E9/L Normal 0.0-0.2 [facility] Comment on above: Performed By: #### 2 [id number] #### [facility] [address] [place] [address] Eosinophils (Bld) [#/Vol] 0.2 E9/L Normal 0.0-0.5 [facility] Comment on above: Performed By: #### 2 [id number] #### [facility] [address] [place] [address] Eosinophils/100 WBC (Bld) 1.8 % Normal 0.0-8.0 [facility] Comment on above: Performed By: #### 2 [id number] #### [facility] [address] [place] [address] Erythrocyte distribution width (RBC) [Ratio] 13.4 % Normal 10.9-14.2 [facility] Comment on above: Performed By: #### 2 [id number] #### [facility] [address] [place] [address] Hematocrit (Bld) [Volume fraction] 40.7 % Normal 34.0-46.0 [facility] Comment on above: Performed By: #### 2 [id number] #### [facility] [address] [place] [address] Hemoglobin (Bld) [Mass/Vol] 13.7 g/dL Normal 12.0-16.0 [facility] Comment on above: Performed By: #### 2 [id number] #### [facility] [address] [place] [address] Lymphocytes (Bld) [#/Vol] 3.6 E9/L Normal 1.0-4.0 [facility] Comment on above: Performed By: #### 2 [id number] #### [facility] [address] [place] [address] Lymphocytes/100 WBC (Bld) 27.2 % Normal 14.0-50.0 [facility] Comment on above: Performed By: #### 2 [id number] #### [facility] [address] [place] [address] MCH (RBC) [Entitic mass] 29.0 pg Normal 27.0-34.0 [facility] Comment on above: Performed By: #### 2 [id number] #### [facility] [address] [place] [address] MCHC (RBC) [Mass/Vol] 33.7 g/dL Normal 31.4-36.0 [facility] Comment on above: Performed By: #### 2 [id number] #### [facility] [address] [place] [address] MCV (RBC) [Entitic vol] 85.8 fL Normal 80.0-100.0 [facility] Comment on above: Performed By: #### 2 [id number] #### [facility] [address] [place] [address] Monocytes (Bld) [#/Vol] 0.5 E9/L Normal 0.2-1.0 [facility] Comment on above: Performed By: #### 2 [id number] #### [facility] [address] [place] [address] Neutrophils (Bld) [#/Vol] 8.8 E9/L High 2.0-7.5 [facility] Comment on above: Performed By: #### 2 [id number] #### [facility] [address] [place] [address] Neutrophils/100 WBC (Bld) 66.5 % Normal 36.0-75.0 [facility] Comment on above: Performed By: #### 2 [id number] #### [facility] [address] [place] [address] Platelet mean volume (Bld) [Entitic vol] 7.9 fL Normal 6.4-10.8 [facility] Comment on above: Performed By: #### 2 [id number] #### [facility] [address] [place] [address] Platelets (Bld) [#/Vol] 391.0 E9/L Normal 150.0-500.0 [facility] Comment on above: Performed By: #### 2 [id number] #### [facility] [address] [place] [address] RBC (Bld) [#/Vol] 4.7 E12/L Normal 4.3-5.9 [facility] Comment on above: Performed By: #### 2 277529 #### [facility] [address] [place] [address] WBC corrected for nucl RBC Auto (Bld) [#/Vol] 13.3 E9/L High 4.0-11.0 [facility] Comment on above: Result Comment: Jennifer pheral smear review performed. Performed By: #### 2 [id number] #### [facility] [address] [place] [address] CMPon 06-06-2024 Albumin [Mass/Vol] 4.1 g/dL Normal 3.3-5.0 [facility] Comment on above: Performed By: #### 2 [id number] #### [facility] [address] [place] [address] Albumin/Globulin (S) [Mass conc ratio] 1.5 Normal 1.1-2.2 [facility] Comment on above: Performed By: #### 2 [id number] #### [facility] [address] [place] [address] ALP [Catalytic activity/Vol] 81 Int._Unit/L Normal 21-98 [facility] Comment on above: Performed By: #### 2 952148 #### [facility] [address] [place] [address] ALT No additional P-5'-P [Catalytic activity/Vol] 35 Int._Unit/L Normal 6-46 [facility] Comment on above: Performed By: #### 2 [id number] #### [facility] [address] [place] [address] Anion gap [Moles/Vol] 11 mmol/L Normal 6-16 [facility] Comment on above: Performed By: #### 2 663550 #### [facility] [address] [place] [address] AST [Catalytic activity/Vol] 27 Int._Unit/L Normal 5-43 [facility] Comment on above: Performed By: #### 2 [id number] #### [facility] [address] [place] [address] Bilirubin [Mass/Vol] 0.6 mg/dL Normal 0.0-1.1 [facility] Comment on above: Performed By: #### 2 292940 #### [facility] [address] [place] [address] Calcium [Mass/Vol] 9.1 mg/dL Normal 8.9-11.1 [facility] Comment on above: Performed By: #### 2 110471 #### [facility] [address] [place] [address] Chloride [Moles/Vol] 102 mmol/L Normal 101-111 [facility] Comment on above: Performed By: #### 2 936391 #### [facility] [address] [place] [address] CO2 [Moles/Vol] 28 mmol/L Normal 21-31 [facility] Comment on above: Performed By: #### 2 323113 #### [facility] [address] [place] [address] Creatinine [Mass/Vol] 0.7 mg/dL Normal 0.5-1.3 [facility] Comment on above: Performed By: #### 2 446745 #### [facility] [address] [place] [address] Globulin (S) [Mass/Vol] 2.8 g/dL Normal 1.4-4.0 [facility] Comment on above: Performed By: #### 2 [id number] #### [facility] [address] [place] [address] Glucose [Mass/Vol] 131 mg/dL Normal 55-199 [facility] Comment on above: Performed By: #### 2 873511 #### [facility] [address] [place] [address] Potassium [Moles/Vol] 3.8 mmol/L Normal 3.5-5.3 [facility] Comment on above: Performed By: #### 2 762433 #### [facility] [address] [place] [address] Protein [Mass/Vol] 6.9 g/dL Normal 6.0-7.8 [facility] Comment on above: Performed By: #### 2 [id number] #### [facility] [address] [place] [address] Sodium [Moles/Vol] 137 mmol/L Normal 135-145 [facility] Comment on above: Performed By: #### 2 [id number] #### [facility] [address] [place] [address] Urea nitrogen [Mass/Vol] 7 mg/dL Normal 5-21 [facility] Comment on above: Performed By: #### 2 188692 #### [facility] [address] [place] [address] Urea nitrogen/Creatinine [Mass ratio] 10 No Units Normal 10-20 [facility] Comment on above: Performed By: #### 2 166011 #### [facility] [address] [place] [address] Lipid Panelon 06-06-2024 Cholesterol [Mass/Vol] 207 mg/dL High 120-200 [facility] Comment on above: Performed By: #### 2 [id number] #### [facility] [address] [place] [address] Cholesterol in HDL [Mass/Vol] 55 mg/dL Invalid Interpretation Code [facility] Comment on above: Result Comment: '>= 60 LOW RISK' '<= 40 HIGH RISK' Performed By: #### 2 [id number] #### [facility] [address] [place] [address] Cholesterol in LDL [Mass/Vol] 137 mg/dL High <=129 [facility] Comment on above: Performed By: #### 2 [id number] #### [facility] [address] [place] [address] Cholesterol in VLDL [Mass/Vol] 31 mg/dL Normal 7-40 [facility] Comment on above: Performed By: #### 2 477950 #### [facility] [address] [place] [address] Triglyceride [Mass/Vol] 154 mg/dL High <=149 [facility] Comment on above: Performed By: #### 2 946659 #### [facility] [address] [place] [address] eGFRon 06-06-2024 eGFR 108 mL/min/1.73 m2 Normal >=59 [facility] Comment on above: Order Comment: Order added by Discern Expert. Performed By: #### 1 [id number] #### [facility] [address] [place] [address] Complete Blood Count Auto Di ffon 01-30-2024 Basophils (Bld) [#/Vol] 0.1 10*3/uL Normal 0.0-0.2 [facility] Comment on above: Result Comment: PERF ORMED BY: [place] [address] PATHOLOGIST MENTAL HEALTH PROGRAM SPECIALIST URI GILES M.D. Performed By: #### C MP, KVNG, CBC, FE and TIBC #### [facility] [address] Basophils/100 WBC (Bld) 0.5 % Normal . [facility] Comment on above: Performed By: #### C MP, KVNG, CBC, FE and TIBC #### [facility] [address] [place] [address] [place] Eosinophils (Bld) [#/Vol] 0.3 10*3/uL Normal 0.0-0.45 [facility] Comment on above: Performed By: #### C MP, KVNG, CBC, FE and TIBC #### [facility] [address] [place] [address] [place] Eosinophils/100 WBC (Bld) 2.4 % Normal . [facility] Comment on above: Performed By: #### C MP, KVNG, CBC, FE and TIBC #### [facility] [address] [place] [address] [place] Erythrocyte distribution width (RBC) [Ratio] 13.9 % Normal 11.9-15.3 [facility] Comment on above: Performed By: #### C MP, KVNG, CBC, FE and TIBC #### [address] Hematocrit (Bld) [Volume fraction] 37.8 % Normal 34.0-46.4 [facility] Comment on above: Performed By: #### C MP, KVNG, CBC, FE and TIBC #### [address] Hemoglobin (Bld) [Mass/Vol] 12.3 g/dL Normal 11.8-15.4 [facility] Comment on above: Performed By: #### C MP, KVNG, CBC, FE and TIBC #### [address] Lymphocytes (Bld) [#/Vol] 3.5 10*3/uL Normal 1.00-4.8 [facility] Comment on above: Performed By: #### C MP, KVNG, CBC, FE and TIBC #### [address] Lymphocytes/100 WBC (Bld) 27.9 % Normal . [facility] Comment on above: Performed By: #### C MP, KVNG, CBC, FE and TIBC #### [address] MCH (RBC) [Entitic mass] 27.2 pg Normal 24.7-34.3 [facility] Comment on above: Performed By: #### C MP, KVNG, CBC, FE and TIBC #### [address] MCV (RBC) [Entitic vol] 83.3 fL Normal 80-100 [facility] Comment on above: Performed By: #### C MP, KVNG, CBC, FE and TIBC #### [address] Mean Corpuscular HGB Conc 32.6 g/dL Normal 32.0-35.0 [facility] Comment on above: Performed By: #### C MP, KVNG, CBC, FE and TIBC #### [address] Monocytes (Bld) [#/Vol] 0.5 10*3/uL Normal 0.0-0.8 [facility] Comment on above: Performed By: #### C MP, KVNG, CBC, FE and TIBC #### [address] Monocytes/100 WBC (Bld) 3.7 % Normal . [facility] Comment on above: Performed By: #### C MP, KVNG, CBC, FE and TIBC #### [address] Neutrophils (Bld) [#/Vol] 8.2 10*3/uL High 1.8-7.7 [facility] Comment on above: Performed By: #### C MP, KVNG, CBC, FE and TIBC #### [address] Neutrophils/100 WBC (Bld) 65.5 % Normal . [facility] Comment on above: Performed By: #### C MP, KVNG, CBC, FE and TIBC #### [address] NRBC% 0.2 /100{WBC} Normal 0-0.5 [facility] Comment on above: Performed By: #### C MP, KVNG, CBC, FE and TIBC #### [address] Platelet mean volume (Bld) [Entitic vol] 7.4 fL Normal 6.3-10.7 [facility] Comment on above: Performed By: #### C MP, KVNG, CBC, FE and TIBC #### [address] Platelets (Bld) [#/Vol] 383 10*3/uL Normal 150-450 [facility] Comment on above: Performed By: #### C MP, KVNG, CBC, FE and TIBC #### [address] RBC (Bld) [#/Vol] 4.53 10*6/uL Normal 3.60-5.00 [facility] Comment on above: Performed By: #### C MP, KVNG, CBC, FE and TIBC #### [address] WBC (Bld) [#/Vol] 12.5 10*3/uL High 3.8-11.6 [facility] Comment on above: Performed By: #### C MP, KVNG, CBC, FE and TIBC #### [address] Comprehensive Metabolic [place] 01-30-2024 Albumin [Mass/Vol] 3.8 g/dL Normal 3.5-5.7 [facility] Comment on above: Performed By: #### C MP, KVNG, CBC, FE and TIBC #### [address] Albumin/Globulin [Mass ratio] 1.5 {ratio} Normal [facility] Comment on above: Performed By: #### C MP, KVNG, CBC, FE and TIBC #### [address] ALP [Catalytic activity/Vol] 75 U/L Normal 34-104 [facility] Comment on above: Performed By: #### C MP, KVNG, CBC, FE and TIBC #### [address] ALT [Catalytic activity/Vol] 42 U/L Normal 7-52 [facility] Comment on above: Performed By: #### C MP, KVNG, CBC, FE and TIBC #### [address] Anion gap [Moles/Vol] 10.4 mmol/L Normal 6.0-15.0 [facility] Comment on above: Performed By: #### C MP, KVNG, CBC, FE and TIBC #### [address] AST [Catalytic activity/Vol] 27 U/L Normal 13-39 [facility] Comment on above: Performed By: #### C MP, KVNG, CBC, FE and TIBC #### [facility] [address] [place] [address] Bilirubin [Mass/Vol] 0.3 mg/dL Normal 0.3-1.0 [facility] Comment on above: Performed By: #### C MP, KVNG, CBC, FE and TIBC #### [address] Calcium [Mass/Vol] 8.5 mg/dL Low 8.6-10.3 [facility] Comment on above: Performed By: #### C MP, KVNG, CBC, FE and TIBC #### [address] Chloride [Moles/Vol] 104 mmol/L Normal 98-107 [facility] Comment on above: Performed By: #### C MP, KVNG, CBC, FE and TIBC #### [address] CO2 [Moles/Vol] 28.8 mmol/L Normal 21.0-31.0 [facility] Comment on above: Performed By: #### C MP, KVNG, CBC, FE and TIBC #### [address] Creatinine [Mass/Vol] 0.71 mg/dL Normal 0.60-1.20 [facility] Comment on above: Performed By: #### C MP, KVNG, CBC, FE and TIBC #### [place] [address] [place] Creatinine Clr [facility] 132.69 [facility] Comment on above: Performed By: #### C MP, KVNG, CBC, FE and TIBC #### [place] [address] [place] GFR/1.73 sq M.predicted MDRD (S/P/Bld) [Vol rate/Area] mL/min/{1.73_m2} [facility] Comment on above: Performed By: #### C MP, KVNG, CBC, FE and TIBC #### [facility] [address] Globulin (S) [Mass/Vol] 2.5 g/dL Normal [facility] Comment on above: Performed By: #### C MP, KVNG, CBC, FE and TIBC #### [facility] [address] Glucose [Mass/Vol] 135 mg/dL High 70-100 [facility] Comment on above: Result Comment: [facility] Glucose Reference Range is dependent on time and content of last meal. Glucose of more than 200 mg/dL in a nonstressed, ambulatory subject supports the diagnosis of Diabetes Mellitus. ADA recommended reference range Performed By: #### C MP, KVNG, CBC, FE and TIBC #### [facility] [address] Potassium [Moles/Vol] 4.2 mmol/L Normal 3.5-5.1 [facility] Comment on above: Performed By: #### C MP, KVNG, CBC, FE and TIBC #### [facility] [address] Protein [Mass/Vol] 6.3 g/dL Low 6.4-8.9 [facility] Comment on above: Performed By: #### C MP, KVNG, CBC, FE and TIBC #### [facility] [address] [place] [address] [place] Sodium [Moles/Vol] 139 mmol/L Normal 136-145 [facility] Comment on above: Performed By: #### C MP, KVNG, CBC, FE and TIBC #### [facility] [address] Urea nitrogen [Mass/Vol] 7 mg/dL Normal 7-25 [facility] Comment on above: Performed By: #### C MP, KVNG, CBC, FE and TIBC #### [facility] [address] Ferritinon 01-30-2024 Ferritin [Mass/Vol] 50.7 ng/mL Normal 11.0-306.8 [facility] Comment on above: Result Comment: PERF ORMED BY: [place] [address] PATHOLOGIST MENTAL HEALTH PROGRAM SPECIALIST URI GILES M.D. Performed By: #### C MP, KVNG, CBC, FE and TIBC #### [address] Iron and TIBC Profileon % Iron Saturation 12.3 % Low 20-50 [facility] Comment on above: Performed By: #### C MP, KVNG, CBC, FE and TIBC #### [address] Iron [Mass/Vol] 43 ug/dL Low 50-212 [facility] Comment on above: Performed By: #### C MP, KVNG, CBC, FE and TIBC #### [address] Total Iron Binding Capacity 351 ug/dL Normal 255-450 [facility] Comment on above: Performed By: #### C MP, KVNG, CBC, FE and TIBC #### [address] Transferrin [Mass/Vol] 251 mg/dL Normal 203-362 [facility] Comment on above: Performed By: #### C MP, KVNG, CBC, FE and TIBC #### [address] Complete Blood Count Auto Di ffon 08-10-2023 Basophils (Bld) [#/Vol] 0.1 10*3/uL Normal 0.0-0.2 [facility] Comment on above: Result Comment: PERF ORMED BY: [place] [address] PATHOLOGIST MENTAL HEALTH PROGRAM SPECIALIST URI GILES M.D. Performed By: #### F ER, FE and TIBC, CBC #### [place] [address] [place] Basophils/100 WBC (Bld) 0.7 % Normal . [facility] Comment on above: Performed By: #### F ER, FE and TIBC, CBC #### [address] Eosinophils (Bld) [#/Vol] 0.2 10*3/uL Normal 0.0-0.45 [facility] Comment on above: Performed By: #### F ER, FE and TIBC, CBC #### [address] Eosinophils/100 WBC (Bld) 1.8 % Normal . [facility] Comment on above: Performed By: #### F ER, FE and TIBC, CBC #### [address] Erythrocyte distribution width (RBC) [Ratio] 14.0 % Normal 11.9-15.3 [facility] Comment on above: Performed By: #### F ER, FE and TIBC, CBC #### [address] Hematocrit (Bld) [Volume fraction] 39.2 % Normal 34.0-46.4 [facility] Comment on above: Performed By: #### F ER, FE and TIBC, CBC #### [address] Hemoglobin (Bld) [Mass/Vol] 13.0 g/dL Normal 11.8-15.4 [facility] Comment on above: Performed By: #### F ER, FE and TIBC, CBC #### [address] Lymphocytes (Bld) [#/Vol] 3.4 10*3/uL Normal 1.00-4.8 [facility] Comment on above: Performed By: #### F ER, FE and TIBC, CBC #### [address] Lymphocytes/100 WBC (Bld) 29.2 % Normal . [facility] Comment on above: Performed By: #### F ER, FE and TIBC, CBC #### [facility] [address] MCH (RBC) [Entitic mass] 28.1 pg Normal 24.7-34.3 [facility] Comment on above: Performed By: #### F ER, FE and TIBC, CBC #### [address] MCV (RBC) [Entitic vol] 84.4 fL Normal 80-100 [facility] Comment on above: Performed By: #### F ER, FE and TIBC, CBC #### [address] Mean Corpuscular HGB Conc 33.3 g/dL Normal 32.0-35.0 [facility] Comment on above: Performed By: #### F ER, FE and TIBC, CBC #### [address] Monocytes (Bld) [#/Vol] 0.5 10*3/uL Normal 0.0-0.8 [facility] Comment on above: Performed By: #### F ER, FE and TIBC, CBC #### [address] Monocytes/100 WBC (Bld) 4.6 % Normal . [facility] Comment on above: Performed By: #### F ER, FE and TIBC, CBC #### [address] Neutrophils (Bld) [#/Vol] 7.5 10*3/uL Normal 1.8-7.7 [facility] Comment on above: Performed By: #### F ER, FE and TIBC, CBC #### [address] Neutrophils/100 WBC (Bld) 63.7 % Normal . [facility] Comment on above: Performed By: #### F ER, FE and TIBC, CBC #### [address] NRBC% 0.1 /100{WBC} Normal 0-0.5 [facility] Comment on above: Performed By: #### F ER, FE and TIBC, CBC #### [address] Platelet mean volume (Bld) [Entitic vol] 7.4 fL Normal 6.3-10.7 [facility] Comment on above: Performed By: #### F ER, FE and TIBC, CBC #### [address] Platelets (Bld) [#/Vol] 341 10*3/uL Normal 150-450 [facility] Comment on above: Performed By: #### F ER, FE and TIBC, CBC #### [address] RBC (Bld) [#/Vol] 4.64 10*6/uL Normal 3.60-5.00 [facility] Comment on above: Performed By: #### F ER, FE and TIBC, CBC #### [address] WBC (Bld) [#/Vol] 11.7 10*3/uL High 3.8-11.6 [facility] [facility] Comment on above: Performed By: #### F ER, FE and TIBC, CBC #### [address] Ferritinon 08-10-2023 Ferritin [Mass/Vol] 60.7 ng/mL Normal 11.0-306.8 [facility] Comment on above: Result Comment: PERF ORMED BY: [place] [address] PATHOLOGIST MENTAL HEALTH PROGRAM SPECIALIST URI GILES M.D. Performed By: #### F ER, FE and TIBC, CBC #### [address] Iron and TIBC Profileon 07-28 % Iron Saturation 24.2 % Normal 20-50 [facility] Comment on above: Performed By: #### F ER, FE and TIBC, CBC #### [facility] [address] [id number] [facility] Iron [Mass/Vol] 84 ug/dL Normal 50-212 [facility] Comment on above: Performed By: #### F ER, FE and TIBC, CBC #### [facility] [address] Total Iron Binding Capacity 347 ug/dL Normal 255-450 [facility] Comment on above: Performed By: #### F ER, FE and TIBC, CBC #### [facility] [address] [id number] [facility] Transferrin [Mass/Vol] 248 mg/dL Normal 203-362 [facility] Comment on above: Performed By: #### F ER, FE and TIBC, CBC #### [facility] [address] Auto Diffon 06-16-2023 Basophils/100 WBC (Bld) 0.4 % Normal 0.0-2.0 [facility] Comment on above: Order Comment: Order Added by Discern Expert. Performed By: #### 1 [id number], 3317200, 64921247, 0868197, 6181641, 2819848 #### [facility] [address] [place] [address] Basophils/Leukocytes Auto (Bld) [Pure # fraction] 0.1 E9/L Normal 0.0-0.2 [facility] Comment on above: Order Comment: Order Added by Discern Expert. Performed By: #### 1 5019621, 1138240, 47183772, 7518218, 9937893, 3351007 #### [facility] [address] [place] [address] Eosinophils/100 WBC (Bld) 1.3 % Normal 0.0-8.0 [facility] Comment on above: Order Comment: Order Added by Discern Expert. Performed By: #### 1 7946976, 3331097, 56617236, 2274548, 6577187, 9222785 #### [facility] [address] [place] [address] Eosinophils/Leukocytes Auto (Bld) [Pure # fraction] 0.2 E9/L Normal 0.0-0.5 [facility] Comment on above: Order Comment: Order Added by Discern Expert. Performed By: #### 1 [id number], 9068417, 99033392, 3328890, 9801687, 0151879 #### [facility] [address] [place] [address] Lymphocytes/100 WBC (Bld) 32.8 % Normal 14.0-50.0 [facility] Comment on above: Order Comment: Order Added by Discern Expert. Performed By: #### 1 3853649, 0453257, 95784791, 6649333, 0805456, 3787770 #### [facility] [address] [place] [address] Lymphocytes/Leukocytes Auto (Bld) [Pure # fraction] 4.2 E9/L High 1.0-4.0 [facility] Comment on above: Order Comment: Order Added by Discern Expert. Performed By: #### 1 7550253, 8936925, 39973376, 0623613, 3671813, 3291422 #### [facility] [address] [place] [address] Monocytes/100 WBC (Bld) 4.9 % Normal 4.0-14.0 [facility] Comment on above: Order Comment: Order Added by Discern Expert. Performed By: #### 1 1235978, 9733123, 98019959, 4392296, 9568198, 8198166 #### [facility] [address] [place] [address] Monocytes/Leukocytes Auto (Bld) [Pure # fraction] 0.6 E9/L Normal 0.2-1.0 [facility] Comment on above: Order Comment: Order Added by Discern Expert. Performed By: #### 1 4168094, 5951204, 49360338, 8889425, 8252906, 3235205 #### [facility] [address] [place] [address] Neutrophils/100 WBC (Bld) 60.6 % Normal 36.0-75.0 [facility] Comment on above: Order Comment: Order Added by Discern Expert. Performed By: #### 1 9340471, 2464719, 23135352, 1066112, 0787078, 3001908 #### [facility] [address] [place] [address] Neutrophils/Leukocytes Auto (Bld) [Pure # fraction] 7.7 E9/L High 2.0-7.5 [facility] Comment on above: Order Comment: Order Added by Discern Expert. Performed By: #### 1 7475966, 4878217, 62856363, 2039905, 6348513, 9120121 #### [facility] [address] [place] [address] CBC w/ Auto Diffon 3 Erythrocyte distribution width (RBC) [Ratio] 14.0 % Normal 10.9-14.2 [facility] Comment on above: Performed By: #### 1 6498433, 5081138, 11973826, 6585112, 7022497, 5925088 #### [facility] [address] [place] [address] Hematocrit (Bld) [Volume fraction] 40.2 % Normal 34.0-46.0 [facility] Comment on above: Performed By: #### 1 7451845, 9555879, 01499151, 0191969, 5408733, 1903518 #### [facility] [address] [place] [address] Hemoglobin (Bld) [Mass/Vol] 13.5 g/dL Normal 12.0-16.0 [facility] Comment on above: Performed By: #### 1 2495954, 4805495, 95823021, 2230512, 4774137, 2361229 #### [facility] [address] [place] [address] MCH (RBC) [Entitic mass] 28.2 pg Normal 27.0-34.0 [facility] Comment on above: Performed By: #### 1 6122549, 5070378, 14901168, 9103497, 5922797, 3635578 #### [facility] [address] [place] [address] MCHC (RBC) [Mass/Vol] 33.6 g/dL Normal 31.4-36.0 [facility] Comment on above: Performed By: #### 1 7222640, 7614597, 20570828, 6376389, 6384394, 8337428 #### [facility] [address] [place] [address] MCV (RBC) [Entitic vol] 83.7 fL Normal 80.0-100.0 [facility] Comment on above: Performed By: #### 1 3539186, 9046341, 90579965, 8699102, 9140596, 6962321 #### [facility] [address] [place] [address] Platelet mean volume (Bld) [Entitic vol] 8.1 fL Normal 6.4-10.8 [facility] Comment on above: Performed By: #### 1 8140434, 0387142, 38274062, 8951097, 2847412, 9803155 #### [facility] [address] [place] [address] Platelets (Bld) [#/Vol] 392.0 E9/L Normal 150.0-500.0 [facility] Comment on above: Performed By: #### 1 1874956, 4359316, 37618995, 5179947, 4792484, 2822070 #### [facility] [address] [place] [address] RBC (Bld) [#/Vol] 4.8 E12/L Normal 4.3-5.9 [facility] Comment on above: Performed By: #### 1 7973176, 2641581, 27840121, 9695265, 4024525, 2482780 #### [facility] [address] [place] [address] WBC corrected for nucl RBC Auto (Bld) [#/Vol] 12.7 E9/L High 4.0-11.0 [facility] Comment on above: Result Comment: Slid e reviewed by AD. Performed By: #### 1 6660721, 2852938, 29486332, 6366081, 9496420, 5364181 #### [facility] [address] [place] [address] CMPon 06-16-2023 Albumin [Mass/Vol] 4.0 g/dL Normal 3.3-5.0 [facility] Comment on above: Performed By: #### 1 1366949, 3188824, 32096411, 2272537, 9334454, 9356501 #### [facility] [address] [place] [address] Albumin/Globulin (S) [Mass conc ratio] 1.4 Normal 1.1-2.2 [facility] Comment on above: Performed By: #### 1 9622767, 0692628, 27244421, 5463542, 7272641, 0804391 #### [facility] [address] [place] [address] ALP [Catalytic activity/Vol] 65 Int._Unit/L Normal 21-98 [facility] Comment on above: Performed By: #### 1 2168514, 3034748, 57692152, 4413872, 1623980, 8000806 #### [facility] [address] [place] [address] ALT No additional P-5'-P [Catalytic activity/Vol] 34 Int._Unit/L Normal 6-46 [facility] Comment on above: Performed By: #### 1 8290032, 1258468, 70012680, 7743462, 7293049, 4967497 #### [facility] [address] [place] [address] Anion gap [Moles/Vol] 12 mmol/L Normal 6-16 [facility] Comment on above: Performed By: #### 1 0267066, 2448528, 01597703, 0624455, 8544223, 0181754 #### [facility] [address] [place] [address] AST [Catalytic activity/Vol] 25 Int._Unit/L Normal 5-43 [facility] Comment on above: Performed By: #### 1 4180888, 2732214, 78643815, 3426193, 7330370, 3014970 #### [facility] [address] [place] [address] Bilirubin [Mass/Vol] 0.3 mg/dL Normal 0.0-1.1 [facility] Comment on above: Performed By: #### 1 1351169, 5910626, 65778612, 4933820, 9977492, 1632607 #### [facility] [address] [place] [address] Calcium [Mass/Vol] 9.5 mg/dL Normal 8.9-11.1 [facility] Comment on above: Performed By: #### 1 4672089, 5877493, 19911784, 7848243, 5566951, 2504174 #### [facility] [address] [place] [address] Chloride [Moles/Vol] 103 mmol/L Normal 101-111 [facility] Comment on above: Performed By: #### 1 3104736, 8408958, 63651000, 6730912, 5664116, 9458701 #### [facility] [address] [place] [address] CO2 [Moles/Vol] 28 mmol/L Normal 21-31 [facility] Comment on above: Performed By: #### 1 6842798, 9017264, 00315138, 3042386, 1686383, 9756835 #### [facility] [address] [place] [address] Creatinine [Mass/Vol] 0.7 mg/dL Normal 0.5-1.3 [facility] Comment on above: Performed By: #### 1 6564330, 1729225, 46721977, 0989442, 7011132, 7495118 #### [facility] [address] [place] [address] Globulin (S) [Mass/Vol] 2.9 g/dL Normal 1.4-4.0 [facility] Comment on above: Performed By: #### 1 7212952, 2942002, 85238415, 1792883, 7276516, 8014539 #### [facility] [address] [place] [address] Glucose [Mass/Vol] 82 mg/dL Normal 55-199 [facility] Comment on above: Result Comment: If t his glucose result represents a fasting glucose, interpretation should refer to the following reference range: 55-99 mg/dL Performed By: #### 1 9323213, 2849272, 85705984, 0559893, 8079042, 0445589 #### [facility] [address] [place] [address] Potassium [Moles/Vol] 4.2 mmol/L Normal 3.5-5.3 [facility] Comment on above: Performed By: #### 1 6166033, 5526641, 74164738, 0004032, 6454708, 9519155 #### [facility] [address] [place] [address] Protein [Mass/Vol] 6.9 g/dL Normal 6.0-7.8 [facility] Comment on above: Performed By: #### 1 2832440, 0570001, 91079436, 2781693, 7541950, 6884652 #### [facility] [address] [place] [address] Sodium [Moles/Vol] 139 mmol/L Normal 135-145 [facility] Comment on above: Performed By: #### 1 9348701, 1292347, 84860065, 5959942, 2083601, 8775994 #### [facility] [address] [place] [address] Urea nitrogen [Mass/Vol] 8 mg/dL Normal 5-21 [facility] Comment on above: Performed By: #### 1 4423753, 9713124, 12794953, 2182923, 8843446, 5354677 #### [facility] [address] [place] [address] Urea nitrogen/Creatinine [Mass ratio] 11 No Units Normal 10-20 [facility] Comment on above: Performed By: #### 1 3299791, 3415408, 72347914, 3301227, 5806013, 0685361 #### [facility] [address] [place] [address] Lipid Panelon 06-16-2023 Cholesterol [Mass/Vol] 214 mg/dL High 120-200 [facility] Comment on above: Order Comment: per t he order, pt was not fasting. [facility] 06/16/2023 20:42:30 EDT Performed By: #### 1 2411491, 9042972, 04705542, 4368082, 2216461, 9033041 #### [facility] [address] [place] [address] Cholesterol in HDL [Mass/Vol] 50 mg/dL Invalid Interpretation Code [facility] Comment on above: Order Comment: per t he order, pt was not fasting. [facility] 06/16/2023 20:42:30 EDT Result Comment: HDL > or equal to 60 mg/dL: Low cardiovascular risk HDL < 40 mg/dL : High cardiovascular risk Performed By: #### 1 9741876, 6309143, 27033406, 4108271, 4069352, 7370615 #### [facility] [address] [place] [address] Cholesterol in LDL [Mass/Vol] 121 mg/dL Normal <=129 [facility] Comment on above: Order Comment: per t he order, pt was not fasting. [facility] 06/16/2023 20:42:30 EDT Performed By: #### 1 2912224, 4873274, 61849108, 8735190, 9768194, 9558135 #### [facility] [address] [place] [address] Cholesterol in VLDL [Mass/Vol] 30 mg/dL Normal 7-40 [facility] Comment on above: Order Comment: per t he order, pt was not fasting. [facility] 06/16/2023 20:42:30 EDT Performed By: #### 1 3840540, 4987890, 21793113, 8730343, 0615921, 8245492 #### [facility] [address] [place] [address] Triglyceride [Mass/Vol] 151 mg/dL High <=149 [facility] Comment on above: Order Comment: per t he order, pt was not fasting. [facility] 06/16/2023 20:42:30 EDT Performed By: #### 1 9672061, 2357322, 29280328, 9023192, 9919482, 7761544 #### [facility] [address] [place] [address] Physician Orderon 06-16-2023 Physician Order [id number]:12 [id number] Normal [facility] T4 & TSHon 06-16-2023 T4 [Mass/Vol] 9.8 microgram/dL High 4.6-9.1 [facility] Comment on above: Performed By: #### 1 3519870, 1929868, 18198589, 5588057, 7254611, 6147763 #### [facility] [address] [place] [address] TSH Qn 2.45 m[IU]/L Normal 0.34-5.60 [facility] Comment on above: Performed By: #### 1 5476655, 8901984, 27131085, 1650432, 1002993, 6780548 #### [facility] [address] [place] [address] eGFRon 06-16-2023 GFR/1.73 sq M.predicted among non-blacks MDRD (S/P/Bld) [Vol rate/Area] 109 mL/min/1.73 m2 Normal >=59 [facility] Comment on above: Order Comment: Order added by Discern Expert. Result Comment: Rn Neurology mikal kidney disease could be indicated at eGFR's of less than 60 mL/min/1.73m2. Kidney failure is indicated at less than 15 mL/min/1.73m2. Performed By: #### 1 7524895, 7029967, 46954338, 8092932, 2822713, 7156765 #### [facility] [address] [id number] Complete Blood Count Auto Di ffon 04-25-2023 Basophils (Bld) [#/Vol] 0.1 10*3/uL Normal 0.0-0.2 [facility] Comment on above: Result Comment: PERF ORMED BY: [facility] [address] [place] [address] PATHOLOGIST MENTAL HEALTH PROGRAM SPECIALIST URI GILES M.D. Performed By: #### C BC, KVNG, FE and TIBC #### [facility] [address] [place] [address] Basophils/100 WBC (Bld) 0.8 % Normal [facility] Comment on above: Performed By: #### C BC, KVNG, FE and TIBC #### [facility] [address] [place] [address] [place] Eosinophils (Bld) [#/Vol] 0.3 10*3/uL Normal 0.0-0.45 [facility] Comment on above: Performed By: #### C BC, KVNG, FE and TIBC #### [address] Eosinophils/100 WBC (Bld) 2.8 % Normal . [facility] Comment on above: Performed By: #### C BC, KVNG, FE and TIBC #### [facility] [address] Erythrocyte distribution width (RBC) [Ratio] 14.3 % Normal 11.9-15.3 [facility] Comment on above: Performed By: #### C BC, KVNG, FE and TIBC #### [facility] [address] Hematocrit (Bld) [Volume fraction] 38.8 % Normal 34.0-46.4 [facility] Comment on above: Performed By: #### C BC, KVNG, FE and TIBC #### [address] Hemoglobin (Bld) [Mass/Vol] 12.9 g/dL Normal 11.8-15.4 [facility] Comment on above: Performed By: #### C BC, KVNG, FE and TIBC #### [address] Lymphocytes (Bld) [#/Vol] 3.7 10*3/uL Normal 1.00-4.8 [facility] Comment on above: Performed By: #### C BC, KVNG, FE and TIBC #### [address] Lymphocytes/100 WBC (Bld) 33.9 % Normal . [facility] Comment on above: Performed By: #### C BC, KVNG, FE and TIBC #### [address] MCH (RBC) [Entitic mass] 27.6 pg Normal 24.7-34.3 [facility] Comment on above: Performed By: #### C BC, KVNG, FE and TIBC #### [address] MCV (RBC) [Entitic vol] 83.3 fL Normal 80-100 [facility] Comment on above: Performed By: #### C BC, KVNG, FE and TIBC #### [address] Mean Corpuscular HGB Conc 33.1 g/dL Normal 32.0-35.0 [facility] Comment on above: Performed By: #### C BC, KVNG, FE and TIBC #### [address] Monocytes (Bld) [#/Vol] 0.5 10*3/uL Normal 0.0-0.8 [facility] Comment on above: Performed By: #### C BC, KVNG, FE and TIBC #### [address] Monocytes/100 WBC (Bld) 4.2 % Normal . [facility] Comment on above: Performed By: #### C BC, KVNG, FE and TIBC #### [facility] [address] Neutrophils (Bld) [#/Vol] 6.4 10*3/uL Normal 1.8-7.7 [facility] Comment on above: Performed By: #### C BC, KVNG, FE and TIBC #### [address] Neutrophils/100 WBC (Bld) 58.3 % Normal . [facility] Comment on above: Performed By: #### C BC, KVNG, FE and TIBC #### [address] NRBC% 0.1 /100{WBC} Normal 0-0.5 [facility] Comment on above: Performed By: #### C BC, KVNG, FE and TIBC #### [address] Platelet mean volume (Bld) [Entitic vol] 7.3 fL Normal 6.3-10.7 [facility] Comment on above: Performed By: #### C BC, KVNG, FE and TIBC #### [address] Platelets (Bld) [#/Vol] 365 10*3/uL Normal 150-450 [facility] Comment on above: Performed By: #### C BC, KVNG, FE and TIBC #### [address] RBC (Bld) [#/Vol] 4.66 10*6/uL Normal 3.60-5.00 [facility] Comment on above: Performed By: #### C BC, KVNG, FE and TIBC #### [address] WBC (Bld) [#/Vol] 11.0 10*3/uL Normal 3.8-11.6 [facility] Comment on above: Performed By: #### C BC, KVNG, FE and TIBC #### [facility] [address] Ferritinon 04-25-2023 Ferritin [Mass/Vol] 91.8 ng/mL Normal 11.0-306.8 [facility] Comment on above: Result Comment: PERF ORMED BY: [place] [address] PATHOLOGIST MENTAL HEALTH PROGRAM SPECIALIST URI GILES M.D. Performed By: #### C BC, KVNG, FE and TIBC #### [address] Iron and TIBC Profileon 03-29 % Iron Saturation 20.5 % Normal 20-50 [facility] Comment on above: Performed By: #### C BC, KVNG, FE and TIBC #### [facility] [address] [place] [address] Iron [Mass/Vol] 69 ug/dL Normal 50-212 [facility] Comment on above: Performed By: #### C BC, KVNG, FE and TIBC #### [address] Total Iron Binding Capacity 337 ug/dL Normal 255-450 [facility] Comment on above: Performed By: #### C BC, KVNG, FE and TIBC #### [facility] [address] [place] [address] Transferrin [Mass/Vol] 241 mg/dL Normal 203-362 [facility] Comment on above: Performed By: #### C BC, KVNG, FE and TIBC #### [place] [address] [place] HbA1c (Bld) [Mass fraction]o n 01-24-2023 A1C HEMOGLOBIN 5.3 [employer] Other A1C HEMOGLOBIN [employer] Other Basophils Auto (Bld) [#/Vol] Ordered By: Savana Whitfield on 01-16-2023 Basophils (Bld) [#/Vol] 0.1 10*3/uL 0.0-0.2 [facility] Basophils/100 WBC Auto (Bld) Ordered By: Savana Whitfield on 01-16-2023 Basophils/100 WBC (Bld) 0.5 % . [facility] CT biopsyOrdered By: Savana Soto on 01-16-2023 Transferrin [Mass/Vol] 238 mg/dL 180-380 [facility]osinophils Auto (Bld) [#/Vo l]Ordered By: Savana Whitfield on 01-16-2023 Eosinophils (Bld) [#/Vol] 0.2 10*3/uL 0.0-0.45 [facility] Eosinophils/100 WBC Auto (Bl d)Ordered By: Savana Whitfield on 01-16-2023 Eosinophils/100 WBC (Bld) 1.6 % . [facility] Erythrocyte distribution wid th Auto (RBC) [Ratio]Ordered By: Savana Whitfield on 01-16-2023 Erythrocyte distribution width (RBC) [Ratio] 19.7 % 11.9-15.3 [facility] Ferritin [Mass/volume] in Se rum or PlasmaOrdered By: Savana Whitfield on 01-16-2023 Ferritin [Mass/Vol] 113.5 ng/mL 11-306.8 [facility] Hematocrit Auto (Bld) [Volum e fraction]Ordered By: Savana Whitfield on 01-16-2023 Hematocrit (Bld) [Volume fraction] 39.1 % 34.0-46.4 [facility] Hemoglobin [Mass/volume] in BloodOrdered By: Savana Whitfield on 01-16-2023 Hemoglobin (Bld) [Mass/Vol] 12.6 g/dL 11.8-15.4 [facility] Iron [Mass/volume] in Serum or PlasmaOrdered By: Savana Whitfield on 01-16-2023 Iron [Mass/Vol] 57 ug/dL 40-150 [facility] Iron binding capacity [Mass/ volume] in Serum or PlasmaOrdered By: Savana Whitfield on 01-16-2023 Iron binding capacity [Mass/Vol] 333 ug/dL 255-450 [facility] Iron saturation [Mass Fracti on] in Serum or PlasmaOrdered By: Savana Whitfield on 01-16-2023 Iron saturation [Mass fraction] 17.1 % 20-50 [facility] Leukocytes [#/volume] correc issa for nucleated erythrocytes in Blood by Automated counOrdered By: Savana Whitfield on 01-16-2023 WBC corrected for nucl RBC Auto (Bld) [#/Vol] 13.3 10*3/uL 3.8-11.6 [facility] Lymphocytes Auto (Bld) [#/Vo l]Ordered By: Savana Whitfield on 01-16-2023 Lymphocytes (Bld) [#/Vol] 4.2 10*3/uL 1.00-4.8 [facility] Lymphocytes/100 WBC Auto (Bl d)Ordered By: Savana Whitfield on 01-16-2023 Lymphocytes/100 WBC (Bld) 31.5 % . [facility] MCH Auto (RBC) [Entitic mass ]Ordered By: Savana Whitfield on 01-16-2023 MCH (RBC) [Entitic mass] 25.3 pg 24.7-34.3 [facility] MCHC Auto (RBC) [Mass/Vol]Or dered By: Savana Whitfield on 01-16-2023 MCHC (RBC) [Mass/Vol] 32.4 g/dL 32.0-35.0 [facility] MCV Auto (RBC) [Entitic vol] Ordered By: Savana Whitfield on 01-16-2023 MCV (RBC) [Entitic vol] 78.1 fL 80-100 [facility] Monocytes Auto (Bld) [#/Vol] Ordered By: Savana Whitfield on 01-16-2023 Monocytes (Bld) [#/Vol] 0.6 10*3/uL 0.0-0.8 [facility] Monocytes/100 WBC Auto (Bld) Ordered By: Savana Whitfield on 01-16-2023 Monocytes/100 WBC (Bld) 4.6 % . [facility] Neutrophils Auto (Bld) [#/Vo l]Ordered By: Savana Whitfield on 01-16-2023 Neutrophils (Bld) [#/Vol] 8.2 10*3/uL 1.8-7.7 [facility] Neutrophils/100 WBC Auto (Bl d)Ordered By: Savana Whitfield on 01-16-2023 Neutrophils/100 WBC (Bld) 61.8 % . [facility] Nucleated erythrocytes [Pres ence] in Blood by Automated countOrdered By: Savana Whitfield on 01-16-2023 Nucleated RBC Auto Ql (Bld) 0.1 /100{WBC} 0-0.5 [facility] Platelet mean volume Auto (B ld) [Entitic vol]Ordered By: Savana Whitfield on 01-16-2023 Platelet mean volume (Bld) [Entitic vol] 7.1 fL 6.3-10.7 [facility] Platelets Auto (Bld) [#/Vol] Ordered By: Savana Whitfield on 01-16-2023 Platelets (Bld) [#/Vol] 388 10*3/uL 150-450 [facility] RBC Auto (Bld) [#/Vol]Ordere d By: Savana Whitfield on 01-16-2023 RBC (Bld) [#/Vol] 5.00 10*6/uL 3.60-5.00 [facility] WBC Auto (Bld) [#/Vol]Ordere d By: Savana Whitfield on 01-16-2023 WBC (Bld) [#/Vol] 13.3 10*3/uL 3.8-11.6 [facility] Absolute reticulocyte countO rdered By: Savana Whitfield on 12-06-2022 Reticulocytes (Bld) [#/Vol] 0.082 10*6/uL 0.024-0.084 [facility] Albumin [Mass/volume] in Ser um or PlasmaOrdered By: Savana Whitfield on 12-06-2022 Albumin [Mass/Vol] 3.4 g/dL 3.2-5.5 [facility] Creatinine and Glomerular fi ltration rate.predicted panel (S/P/Bld)Ordered By: Savana Whitfield on 12-06-2022 Creatinine [Mass/Vol] 0.67 mg/dL 0.44-1.03 [facility] Erythrocyte sedimentation ra te by Photometric methodOrdered By: Savana Whitfield on 12-06-2022 ESR Photometric method (Bld) [Velocity] 45 mm/hr 0-19 [facility] Estimated glomerular filtrat ion rate (GFR) non- AmericanOrdered By: Savana [place]field on 12-06-2022 GFR/1.73 sq M.predicted among non-blacks MDRD (S/P/Bld) [Vol rate/Area] > 60 mL/Min [facility] Globulin Calc (S) [Mass/Vol] Ordered By: Savnaa Whitfield on 12-06-2022 Globulin (S) [Mass/Vol] 3.0 g/dL [facility] No Panel InformationOrdered By: Savana Whitfield on 12-06-2022 Estimated GFR () > 60 mL/Min [facility] Comment on above: GFR estimated refere nce range: According to KDOQI guidelines, <60 ml/min/1.73m2 is sufficient to diagnose a patient with chronic kidney disease. Pharmacy Creatinine Clearance (Chem 142.02 [facility] Protein [Mass/volume] in Ser um or PlasmaOrdered By: Savana Whitfield on 12-06-2022 Protein [Mass/Vol] 6.4 g/dL 6.1-7.9 [facility] Reticulocytes/100 RBC Auto ( Bld)Ordered By: Savana Whitfield on 12-06-2022 Reticulocytes/100 RBC (Bld) 1.7 % 0.5-1.5 [facility] Serum or plasma alanine dial otransferase measurement without P-5'-P (enzymatic activiOrdered By: Savana Whitfield on 12-06-2022 ALT No additional P-5'-P [Catalytic activity/Vol] 21 U/L 10-60 [facility] Serum or plasma albumin/glob ulin mass ratioOrdered By: Savana Whitfield on 12-06-2022 Albumin/Globulin [Mass ratio] 1.1 {ratio} [facility] Serum or plasma alkaline oscar sphatase measurement (enzymatic activity/volume)Ordered By: Savana Whitfield on 12-06-2022 ALP [Catalytic activity/Vol] 74 U/L 32-92 [facility] Serum or plasma anion gap de terminationOrdered By: Savana Whitfield on 12-06-2022 Anion gap [Moles/Vol] 11.3 mmol/L 6.0-15.0 [facility] Serum or plasma aspartate am inotransferase measurement (enzymatic activity/volume)Ordered By: Savana Whitfield on 12-06-2022 AST [Catalytic activity/Vol] 18 U/L 10-42 [facility] Serum or plasma calcium marilia urement (mass/volume)Ordered By: Savana Whitfield on 12-06-2022 Calcium [Mass/Vol] 8.9 mg/dL 8.2-10.2 [facility] Serum or plasma chloride claudine surement (moles/volume)Ordered By: Savana Whitfield on 12-06-2022 Chloride [Moles/Vol] 102 mmol/L 95-114 [facility] Serum or plasma erythropoiet in (EPO) measurement (units/volume)Ordered By: Savana Whitfield on 12-06-2022 Erythropoietin (EPO) Qn 16.3 mIU/mL 2.6-18.5 [facility] Comment on above: [email or web address] el DxI 800 Immunoassay SystemValues obtained with different assay methods or kits cannotbe used interchangeably. Results cannot be interpreted asabsolute evidence of the presence or absence of malignantdisease.Performed at: [facility] [id number] Director: Zohaib Virgen PhD, Phone: [phone] Serum or plasma glucose marilia urement (mass/volume)Ordered By: Savana Whitfield on 12-06-2022 Glucose [Mass/Vol] 124 mg/dL 70-100 [facility] Comment on above: ADA recommended refe rence rangeRandom Glucose Reference Range is dependent on time and content of last meal. Glucose of more than 200 mg/dL in a nonstressed, ambulatory subject supports the diagnosis of Diabetes Mellitus. Serum or plasma potassium me asurement (moles/volume)Ordered By: Savana Whitfield on 12-06-2022 Potassium [Moles/Vol] 4.2 mmol/L 3.5-5.1 [facility] Serum or plasma sodium measu rement (moles/volume)Ordered By: Savana Whitfield on 12-06-2022 Sodium [Moles/Vol] 134 mmol/L 136-146 [facility] Serum or plasma total biliru bin measurement (mass/volume)Ordered By: Savana Mendeznelsy on 12-06-2022 Bilirubin [Mass/Vol] 0.3 mg/dL 0.3-1.2 [facility] Serum or plasma total carbon dioxide measurement (moles/volume)Ordered By: Savana Mendeznelsy on 12-06-2022 CO2 [Moles/Vol] 24.9 mmol/L 22.0-30.0 [facility] Serum or plasma urea nitroge n measurement (mass/volume)Ordered By: Savana Roseann on 12-06-2022 Urea nitrogen [Mass/Vol] 7 mg/dL 08-19 [facility] XR cervical spine 5V*on 09-28 XR cervical spine 5V* [facility] [employer] Other XR cervical spine 5V* [facility] [employer] Other XR cervical spine 5V* [address] [place] [address] [employer] Other XR cervical spine 5V* [place] [address] [facility] Other XR cervical spine 5V* XRay Report No rt [employer] Other XR cervical spine 5V* Signed [facility] [employer] Other XR cervical spine 5V* Patient: Dinorah Venegas MR#: [id number] [place] [employer] Other XR cervical spine 5V* [address] [facility] [employer] Other XR cervical spine 5V* : 1980 Acct:[id number] [facility] Other XR cervical spine 5V* Age/Sex: 41 / F ADM Date: 10/17/22 [employer] Other XR cervical spine 5V* Loc: XDCLY Room: Type: [facility] Other XR cervical spine 5V* [facility] Dr: [facility] Other XR cervical spine 5V* Copies to: [facility] [employer] Other XR cervical spine 5V* Ordering Provider: [facility] [employer] Other XR cervical spine 5V* Date of Service: 10/17/22 [facility] Other XR cervical spine 5V* XR/XR cervical spine 5V*: M54.2 [facility] Other XR cervical spine 5V* CERVICAL SPINE 7 views: [facility] Other XR cervical spine 5V* CLINICAL HISTORY: Posterior neck pain for 2 weeks. [facility] Other XR cervical spine 5V* COMPARISON: None [facility] Other XR cervical spine 5V* FINDINGS: Nor [employer] Other XR cervical spine 5V* No acute bony process. Vertebral body heights appear maintained. Mild disc space narrowing C4-5. [facility] Other XR cervical spine 5V* Scattered uncovertebral degenerative changes. Facet joints are grossly unremarkable. No [facility] Other XR cervical spine 5V* prevertebral soft tissue swelling. [facility] Other XR cervical spine 5V* XR/XR cervical spine 5V* [facility] Other XR cervical spine 5V* IMPRESSION: No rt [employer] Other XR cervical spine 5V* MILD DEGENERATIVE CHANGES OF THE CERVICAL SPINE WITH MILD DISC SPACE NARROWING C4-5. [facility] Other XR cervical spine 5V* Impression dictated by: Thiago Mireles Jr.O.10/17/2022 3:19 PM [employer] [employer] Other XR cervical spine 5V* Dictation Location: [address] [employer] Other XR cervical spine 5V* Transcribed By: PWS 10/17/[address] [place] [address] [employer] Other XR cervical spine 5V* Dictated By: Justus Garber Jr, DO 10/17/[address] [place] [address] [employer] Other XR cervical spine 5V* Signed By: [facility] [employer] Other XR cervical spine 5V* 10/17/[address] [place] [address] [employer] Other VITAMIN B1 (THIAMINE)on 08-28 Vit. B1, Whole Blood 141.0 nmol/L Normal 66.5-200.0 [facility] Comment on above: Performed By: #### F ERR, VITB12, FETIBC #### [facility] [address] [place] [address] Dr. Иван Dove VITAMIN B6on 09-18-2022 Vitamin B6 11.3 ug/L Normal 3.4-65.2 [facility] Comment on above: Result Comment: Defi ciency: <3.4 Marginal: 3.4 - 5.1 Adequate: >5.1 Performed By: #### F ERR, VITB12, FETIBC #### [facility] [address] [place] [address] Dr. Иван Dove TRANSFERRINon 09-16-2022 Transferrin [Mass/Vol] 331 mg/dL Normal 192-364 [facility] Comment on above: Performed By: #### T RANSFR #### [facility] [address] [place] [address] Dr. Иван Dove FERRITINon 09-15-2022 Ferritin [Mass/Vol] 22.0 ng/mL Normal 6.2-137.0 [facility] Comment on above: Performed By: #### F ERR, VITB12, FETIBC #### [facility] [address] [place] [address] Dr. Иван Dove IRON AND TIBCon 09-15-2022 % SATURATION 5.5 % Normal [facility] Comment on above: Performed By: #### F ERR, VITB12, FETIBC #### [facility] [address] [place] [address] Dr. Иван Dove Iron [Mass/Vol] 21.0 ug/dL Critically low 50.0-170.0 [facility] Comment on above: Performed By: #### F ERR, VITB12, FETIBC #### [facility] [address] [place] [address] Dr. Иван Dove TIBC DIRECT 381.0 ug/dL Normal 250.0-450.0 [facility] Comment on above: Performed By: #### F ERR, VITB12, FETIBC #### [facility] [address] [place] [address] Dr. Иван Dove VITAMIN B12on 09-15-2022 Cobalamin (Vitamin B12) [Mass/Vol] 432.0 pg/mL Normal 193.0-986.0 [facility] Comment on above: Performed By: #### F ERR, VITB12, FETIBC #### [facility] [address] [place] [address] Dr. Иван Dove DALY EIA W/REFLEX 5 BIOMARKER Son 08-09-2022 DALY Direct Negative Normal Negative [facility] Comment on above: Performed By: #### A NARF #### [facility] [address] [place] [address] Dr. Иван Dove LYME DISEASE AB EIA W REFLEX on 08-09-2022 Lyme Total Antibody,EIA Negative Normal Negative [facility] Comment on above: Result Comment: Lyme Antibody Negative No laboratory evidence of infection with B. burgdorferi (Lyme disease). Negative results may occur in patients recently infected (less than or equal to 14 days) with B. burgdorferi. If recent infection is suspected, repeat testing on a new sample collected in 7 to 14 days is recommended. Performed By: #### L YMA #### [facility] [address] [place] [address] Dr. Иван Dove RHEUMATOID FACTORon 08-09-20 RA Latex Turbid. 22.7 IU/mL Critically high <14.0 [facility] Comment on above: Performed By: #### F ERR, VITB12, FETIBC #### [facility] [address] [address] [address] Иван Dove CBC AUTO DIFFon 08-08-2022 BASO # 0.1 103/ul Normal 0.0-0.1 [facility] Comment on above: Performed By: #### F ERR, VITB12, FETIBC #### [facility] [address] [place] [address] Dr. Иван Dove Basophils/100 WBC (Bld) 0.8 % Normal 0.2-2.0 [facility] Comment on above: Performed By: #### F ERR, VITB12, FETIBC #### [facility] [address] [place] [address] Dr. Иван Dove EO # 0.4 103/ul Normal 0.0-0.7 [facility] Comment on above: Performed By: #### F ERR, VITB12, FETIBC #### [facility] [address] [place] [address] Dr. Иван Dove Eosinophils/100 WBC (Bld) 3.2 % Normal 0.9-7.0 [facility] Comment on above: Performed By: #### F ERR, VITB12, FETIBC #### [facility] [address] [place] [address] Dr. Иван Dove Erythrocyte distribution width (RBC) [Ratio] 15.7 % Critically high 11.0-15.0 [facility] Comment on above: Performed By: #### F ERR, VITB12, FETIBC #### [facility] [address] [place] [address] Dr. Иван Dove Hematocrit (Bld) [Volume fraction] 37.7 % Normal 36.0-48.0 [facility] Comment on above: Performed By: #### F ERR, VITB12, FETIBC #### [facility] [address] [place] [address] Dr. Иван Dove Hemoglobin (Bld) [Mass/Vol] 11.7 g/dL Critically low 12.0-16.0 [facility] Comment on above: Performed By: #### F ERR, VITB12, FETIBC #### [facility] [address] [place] [address] Dr. Иван Dove IG # 0.03 10e3/ul Normal 0.00-0.03 [facility] Comment on above: Performed By: #### F ERR, VITB12, FETIBC #### [facility] [address] [place] [address] Dr. Иван Dove IG % 0.3 % Normal 0.0-0.5 [facility] Comment on above: Performed By: #### F ERR, VITB12, FETIBC #### [facility] [address] [place] [address] Dr. Иван Dove LYMPH # 3.9 103/ul Critically high 1.2-3.8 [facility] Comment on above: Performed By: #### F ERR, VITB12, FETIBC #### [facility] [address] [place] [address] Dr. Иван Dove Lymphocytes/100 WBC (Bld) 33.1 % Normal 20.5-60.0 [facility] Comment on above: Performed By: #### F ERR, VITB12, FETIBC #### [facility] [address] [place] [address] Dr. Иван Dove MANUAL DIFF REQ NO Normal [facility] Comment on above: Performed By: #### F ERR, VITB12, FETIBC #### [facility] [address] [place] [address] Dr. Иван Dove MCH (RBC) [Entitic mass] 23.9 pg Critically low 26.7-34 .0 [facility] Comment on above: Performed By: #### F ERR, VITB12, FETIBC #### [facility] [address] [place] [address] Dr. Иван Dove MCHC (RBC) [Mass/Vol] 31.0 g/dL Normal 29.9-35.2 [facility] Comment on above: Performed By: #### F ERR, VITB12, FETIBC #### [facility] [address] [place] [address] Dr. Иван Dove MCV (RBC) [Entitic vol] 76.9 fL Critically low 81.0-99. 0 [facility] Comment on above: Performed By: #### F ERR, VITB12, FETIBC #### [facility] [address] [place] [address] Dr. Иван Dove MONO # 0.7 103/ul Normal 0.3-0.8 [facility] Comment on above: Performed By: #### F ERR, VITB12, FETIBC #### [facility] [address] [place] [address] Dr. Иван Dove Monocytes/100 WBC (Bld) 5.8 % Normal 1.7-12.0 [facility] Comment on above: Performed By: #### F ERR, VITB12, FETIBC #### [facility] [address] [place] [address] Dr. Иван Dove NEUT # 6.7 103/ul Critically high 1.4-6.5 [facility] Comment on above: Performed By: #### F ERR, VITB12, FETIBC #### [facility] [address] [place] [address] Dr. Иван Dove Neutrophils/100 WBC (Bld) 56.8 % Normal 43.0-75.0 [facility] Comment on above: Performed By: #### F ERR, VITB12, FETIBC #### [facility] [address] [place] [address] Dr. Иван Dove Platelet mean volume (Bld) [Entitic vol] 9.0 fL Critically low 9.5-13.5 [facility] Comment on above: Performed By: #### F ERR, VITB12, FETIBC #### [facility] [address] [place] [address] Dr. Иван Dove PLT 463 103/ul Critically high 150-450 [facility] Comment on above: Performed By: #### F ERR, VITB12, FETIBC #### [facility] [address] [place] [address] Dr. Иван Dove RBC 4.90 106/ul Normal 4.20-5.40 [facility] Comment on above: Performed By: #### F ERR, VITB12, FETIBC #### [facility] [address] [place] [address] Dr. Иван Dove WBC 11.7 103/ul Critically high 4.0-11.0 [facility] Comment on above: Performed By: #### F ERR, VITB12, FETIBC #### [facility] [address] [place] [address] Dr. Иван Dove CRPon 08-08-2022 CRP 1.0 mg/dL Normal <=1.0 [facility] Comment on above: Performed By: #### C RP #### [facility] [address] [place] [address] Dr. Иван Dove [facility] SED RATE 29 mm/hr Critically high <=20 [facility] Comment on above: Performed By: #### F ERR, VITB12, FETIBC #### [facility] [address] [place] [address] Dr. Иван Dove GLYCOHEMOGLOBIN A1Con 2021 ADA RECOMMENDATION SEE BELOW Normal [facility] Comment on above: Result Comment: ADA RECOMMENDED LIMIT 4.0 - 6.0 ADA THERAPEUTIC TARGET < 7.0 ACTION SUGGESTED > 7.0 Performed By: #### F ERR, VITB12, FETIBC #### [facility] [address] [place] [address] Dr. Иван Dove Glucose [Mass/Vol] 108 mg/dL Normal [facility] Comment on above: Performed By: #### F ERR, VITB12, FETIBC #### [facility] [address] [place] [address] Dr. Иван Dove HbA1c (Bld) [Mass fraction] 5.4 % Normal 4.5-6.2 [facility] Comment on above: Performed By: #### F ERR, VITB12, FETIBC #### [facility] [address] [address] [address] Иван Dove LIPID PROFILEon 08-03-2022 CHOL-HDL RATIO NORM SEE BELOW Normal [facility] Comment on above: Result Comment: 3.3 - 4.4 LOW RISK 4.4 - 7.1 AVERAGE RISK 7.1 - 11.0 MODERATE RISK >11.0 HIGH RISK Performed By: #### T SH, LIPID, CMP #### [facility] [address] [address] [address] Иван Dove Cholesterol [Mass/Vol] 174 mg/dL Normal <=200 [facility] Comment on above: Performed By: #### T SH, LIPID, CMP #### [facility] [address] [address] [address] Иван Dove Cholesterol in HDL [Mass/Vol] 47 mg/dL Normal 40-60 [facility] Comment on above: Performed By: #### T SH, LIPID, CMP #### [facility] [address] [address] [address] Иван Dove Cholesterol in LDL [Mass/Vol] 109.8 mg/dL Normal [facility] Comment on above: Performed By: #### T SH, LIPID, CMP #### [facility] [address] [address] [address] Иван Dove Cholesterol.total/Choles terol in HDL [Mass ratio] 3.7 {ratio} Normal [facility] Comment on above: Performed By: #### T SH, LIPID, CMP #### [facility] [address] [address] [address] Иван Dove HDL NORMAL > or = 60 mg/dl - LOW CARDIOVASCULAR RISK <40 mg/dl - HIGH CARDIOVASCULAR RISK Normal [facility] Comment on above: Performed By: #### T SH, LIPID, CMP #### [facility] [address] [address] [address] Иван Dove LDL CALC NORMAL SEE BELOW Normal [facility] Comment on above: Result Comment: <100 mg/dl OPTIMAL 100 - 129 mg/dl NEAR OR ABOVE OPTIMAL 130 - 159 mg/dl BORDERLINE HIGH 160 - 189 mg/dl HIGH >190 mg/dl VERY HIGH Performed By: #### T SH, LIPID, CMP #### [facility] [address] [address] [address] Иван Dove Triglyceride [Mass/Vol] 86 mg/dL Normal <=150 T [facility] Comment on above: Performed By: #### T SH, LIPID, CMP #### [facility] [address] [address] [address] Иван Dove VLDL CALC 17.2 mg/dL Normal [facility] Comment on above: Performed By: #### T SH, LIPID, CMP #### [facility] [address] [address] [address] Иван Dove PROF 14(COMP METB)on 022 Albumin [Mass/Vol] 3.5 g/dL Normal 3.4-5.0 [facility] Comment on above: Performed By: #### T ABRAHAM, LIPID, CMP #### [facility] [address] [address] [address] Иван Dove Albumin/Globulin [Mass ratio] 0.9 {ratio} Normal [facility] Comment on above: Performed By: #### T ABRAHAM, LIPID, CMP #### [facility] [address] [address] [address] Иван Dove ALP [Catalytic activity/Vol] 88 U/L Normal 46-116 [facility] Comment on above: Performed By: #### T SH, LIPID, CMP #### [facility] [address] [address] [address] Иван Dove ALT [Catalytic activity/Vol] 25 U/L Normal 14-59 [facility] Comment on above: Performed By: #### T SH, LIPID, CMP #### [facility] [address] [address] [address] Иван Dove Anion gap [Moles/Vol] 11.3 mmol/L Normal [facility] Comment on above: Performed By: #### T SH, LIPID, CMP #### [facility] [address] [address] [address] Иван Dove AST [Catalytic activity/Vol] 16 U/L Normal 15-37 [facility] Comment on above: Performed By: #### T SH, LIPID, CMP #### [facility] [address] [place] [address] Dr. Иван Dove Bilirubin [Mass/Vol] 0.4 mg/dL Normal 0.2-1.0 [facility] Comment on above: Performed By: #### T SH, LIPID, CMP #### [facility] [address] [place] [address] Dr. Иван Dove Calcium [Mass/Vol] 8.8 mg/dL Normal 8.5-10.1 [facility] Comment on above: Performed By: #### T SH, LIPID, CMP #### [facility] [address] [place] [address] Dr. Иван Dove Chloride [Moles/Vol] 102 mmol/L Normal 98-107 [facility] Comment on above: Performed By: #### T SH, LIPID, CMP #### [facility] [address] [place] [address] Dr. Иван Dove CO2 [Moles/Vol] 28.5 mmol/L Normal 21.0-32.0 [facility] Comment on above: Performed By: #### T SH, LIPID, CMP #### [facility] [address] [place] [address] Dr. Иван Dove Creatinine [Mass/Vol] 0.70 mg/dL Normal 0.55-1.02 [facility] Comment on above: Performed By: #### T SH, LIPID, CMP #### [facility] [address] [place] [address] Dr. Иван Dove EGFR-AF SWAZI >60 Normal >=60 [facility] Comment on above: Performed By: #### T SH, LIPID, CMP #### [facility] [address] [place] [address] Dr. Иван Dove EGFR-NON AF SWAZI >60 Normal >=60 [facility] Comment on above: Performed By: #### T SH, LIPID, CMP #### [facility] [address] [address] [address] Иван Dove Globulin (S) [Mass/Vol] 3.9 g/dL Normal [facility] Comment on above: Performed By: #### T SH, LIPID, CMP #### [facility] [address] [place] [address] Dr. Иван Dove Glucose [Mass/Vol] 87 mg/dL Normal 74-106 [facility] Comment on above: Performed By: #### T SH, LIPID, CMP #### [facility] [address] [place] [address] Dr. Иван Dove Potassium [Moles/Vol] 3.8 mmol/L Normal 3.5-5.1 [facility] Comment on above: Performed By: #### T SH, LIPID, CMP #### [facility] [address] [place] [address] Dr. Иван Dove Protein [Mass/Vol] 7.4 g/dL Normal 6.4-8.2 [facility] Comment on above: Performed By: #### T SH, LIPID, CMP #### [facility] [address] [place] [address] Dr. Иван Dove Sodium [Moles/Vol] 138 mmol/L Normal 136-145 [facility] Comment on above: Performed By: #### T SH, LIPID, CMP #### [facility] [address] [place] [address] Dr. Иван Dove Urea nitrogen [Mass/Vol] 6.0 mg/dL Critically low 7.0-18. 0 [facility] Comment on above: Performed By: #### T SH, LIPID, CMP #### [facility] [address] [place] [address] Dr. Иван Dove Urea nitrogen/Creatinine [Mass ratio] 8.6 mg/mg Normal [facility] Comment on above: Performed By: #### T SH, LIPID, CMP #### [facility] [address] [place] [address] Dr. Иван Dove TSHon 08-03-2022 TSH 1.508 uIU/mL Normal 0.358-3.740 [facility] Comment on above: Performed By: #### T SH, LIPID, CMP #### [facility] [address] [address] [address] Иван Dove Vital Signs Date Time Vital Sign Value Performing Clinician Facility 02-27-2023 12:00-0400 Body height 170.18 cm Imad Asaad Other [facility] Other 02-27-2023 12:00-0400 Body mass index (BMI) [Ratio] 39.78 kg/m2 Imad Asaad Other [facility] Other 02-27-2023 12:00-0400 Body weight 115.21 kg Imad Asaad Other [facility] Other 02-27-2023 12:00-0400 Diastolic blood pressure 90 mm[Hg] Imad Asaad Other [facility] Other 02-27-2023 12:00-0400 Systolic blood pressure 150 mm[Hg] Imad Asaad Other [facility] Other 01-24-2023 11:00-0500 Body height 170.18 cm Greta Nelson Other [facility] Other 01-24-2023 11:00-0500 Body mass index (BMI) [Ratio] 40.4 kg/m2 Greta Nelson Other [facility] Other 01-24-2023 11:00-0500 Body temperature 98.1 [degF] Greta Nelson Other [facility] Other 01-24-2023 11:00-0500 Body weight 117.03 kg Greta Nelson Other [facility] Other 01-24-2023 11:00-0500 Diastolic blood pressure 89 mm[Hg] Greta Leslie Other [facility] Other 01-24-2023 11:00-0500 Respiratory rate 18 /min Greta Leslie Other [facility] Other 01-24-2023 11:00-0500 SaO2% (BldA) [Mass fraction] 99 % Greta Melgarault Other [facility] Other 01-24-2023 11:00-0500 Systolic blood pressure 154 mm[Hg] Greta Melgarault Other [facility] Other 01-17-2023 11:50-0500 Body temperature 98 [degF] [employer] Greta Leslie Work Phone: [facility] 01-17-2023 11:50-0500 Body weight 117.6 kg [employer] Greta Leslie Work Phone: [facility] 01-17-2023 11:50-0500 Diastolic blood pressure 114 mm[Hg] [employer] Greta Leslie Work Phone: [facility] 01-17-2023 11:50-0500 Heart rate 80 /min [employer] Greta Leslie Work Phone: [facility] 01-17-2023 11:50-0500 Respiratory rate 18 /min [employer] Greta Leslie Work Phone: [facility] 01-17-2023 11:50-0500 SaO2% (BldA) [Mass fraction] 96 % [employer] Greta Leslie Work Phone: [facility] 01-17-2023 11:50-0500 Systolic blood pressure 167 mm[Hg] [employer] Greta Nelson Work Phone: [facility] 11-04-2022 11:05-0500 Body height 170.18 cm [employer] Greta Nelson Work Phone: [facility] 10-17-2022 12:00-0500 Body height 170.18 cm Greta Nelson Other [facility] Other 10-17-2022 12:00-0500 Body mass index (BMI) [Ratio] 40.56 kg/m2 Greta Melgarault Other [facility] Other 10-17-2022 12:00-0500 Body temperature 98.1 [degF] Greta Melgarault Other [facility] Other 10-17-2022 12:00-0500 Body weight 117.48 kg Greta Melgarault Other [facility] Other 10-17-2022 12:00-0500 Diastolic blood pressure 82 mm[Hg] Greta Leslie Other [facility] Other 10-17-2022 12:00-0500 Respiratory rate 18 /min Greta Melgarault Other [facility] Other 10-17-2022 12:00-0500 SaO2% (BldA) [Mass fraction] 100 % Greta Leslie Other [facility] Other 10-17-2022 12:00-0500 Systolic blood pressure 171 mm[Hg] Greta Nelson Other [facility] Other 09-15-2022 12:30-0400 Body height 170.18 cm Greta Nelson Other [facility] Other 09-15-2022 12:30-0400 Body mass index (BMI) [Ratio] 40.84 kg/m2 Greta Nelson Other [facility] Other 09-15-2022 12:30-0400 Body temperature 98 [degF] Greta Nelson Other [facility] Other 09-15-2022 12:30-0400 Body weight 118.3 kg Greta Nelson Other [facility] Other 09-15-2022 12:30-0400 Diastolic blood pressure 78 mm[Hg] Greta Nelson Other [facility] Other 09-15-2022 12:30-0400 Respiratory rate 18 /min Greta Nelson Other [facility] Other 09-15-2022 12:30-0400 SaO2% (BldA) [Mass fraction] 100 % Greta Nelson Other [facility] Other 09-15-2022 12:30-0400 Systolic blood pressure 135 mm[Hg] Greta Nelson Other [facility] Other 08-08-2022 12:30-0400 Body height 170.18 cm Greta Melgarault Other [facility] Other 08-08-2022 12:30-0400 Body mass index (BMI) [Ratio] 39.93 kg/m2 Greta Nelson Other [facility] Other 08-08-2022 12:30-0400 Body temperature 97.6 [degF] Greta Neslon Other [facility] Other 08-08-2022 12:30-0400 Body weight 115.67 kg Greta Nelson Other [facility] Other 08-08-2022 12:30-0400 Diastolic blood pressure 73 mm[Hg] Greta Nelson Other [facility] Other 08-08-2022 12:30-0400 Respiratory rate 18 /min Greta Nelson Other [facility] Other 08-08-2022 12:30-0400 SaO2% (BldA) [Mass fraction] 99 % Greta Nelson Other [facility] Other 08-08-2022 12:30-0400 Systolic blood pressure 150 mm[Hg] Greta Nelson Other [facility] Other 06-27-2022 11:00-0400 Body height 170.18 cm Greta Nelson Other [facility] Other 06-27-2022 11:00-0400 Body mass index (BMI) [Ratio] 40.28 kg/m2 Greta Melgarault Other [facility] Other 06-27-2022 11:00-0400 Body temperature 98.1 [degF] Greta Melgarault Other [facility] Other 06-27-2022 11:00-0400 Body weight 116.67 kg Greta Nelson Other [facility] Other 06-27-2022 11:00-0400 Diastolic blood pressure 97 mm[Hg] Greta Nelson Other [facility] Other 06-27-2022 11:00-0400 Respiratory rate 18 /min Greta Nelson Other [facility] Other 06-27-2022 11:00-0400 SaO2% (BldA) [Mass fraction] 98 % Greta Nelson Other [facility] Other 06-27-2022 11:00-0400 Systolic blood pressure 172 mm[Hg] Greta Melgarault Other [facility] Other Encounters Encounter Date Encounter Type Care Provider Facility Start: 07-10-2024 End: 07-10-2024 ambulatory [facility] Start: 06-05-2024 End: 06-05-2024 ambulatory MARBELLA NELSON Facility:[facility] Start: 02-15-2024 ambulatory Viktoriya Demboske Facility:[facility] Start: 06-16-2023 End: 06-16-2023 ambulatory MARBELLA NELSON Facility:[facility] Start: 02-27-2023 End: 02-27-2023 ambulatory Imad Asaad Other [facility] Other Start: 02-27-2023 Office outpatient ne w 45 minutes Imad Asaad [facility] Start: 02-01-2023 End: 02-01-2023 ambulatory Greta Nelson Other [facility] Other Start: 02-01-2023 Encounter by compute r link Greta Melgarault [facility] Start: 01-24-2023 End: 01-24-2023 ambulatory Greta Nelson Other [facility] Other Start: 01-24-2023 Office outpatient visit 25 minutes Greta Leslie [facility] Start: 01-17-2023 End: 01-17-2023 ambulatory [employer] Greta Nelson Work Phone: [facility] Work Phone: Start: 01-17-2023 End: 01-17-2023 Registered Recurring [employer] Greta Melgarault Work Phone: [facility] Work Phone: Start: 01-02-2023 End: 01-02-2023 ambulatory Greta Leslie Other [facility] Other Start: 01-02-2023 Telephone encounter Greta camacho [facility] Start: 12-02-2022 End: 12-02-2022 ambulatory Greta Leslie Other [facility] Other Start: 12-02-2022 Encounter by compute r link Greta Leslie [facility] Start: 12-01-2022 End: 12-01-2022 ambulatory Greta Leslie Other [facility] Other Start: 12-01-2022 Encounter by [employer] r link Greta Leslei [facility] Start: 2022 End: 2022 ambulatory Greta Leslie Other [facility] Other Start: 2022 Telephone encounter Greta camacho [facility] Start: 10-17-2022 Office outpatient visit 25 minutes Greta Nelson [facility] Start: 10-17-2022 End: 10-17-2022 ambulatory [employer] Greta Nelson Work Phone: [facility] Work Phone: Start: 10-17-2022 End: 10-17-2022 Patient encounter procedure [employer] Greta Nelson Work Phone: [facility] Start: 09-20-2022 End: 09-20-2022 ambulatory Greta Nelson Other [facility] Other Start: 09-20-2022 Encounter by [employer] Greta Melgarault [facility] Start: 09-15-2022 End: 09-16-2022 ambulatory GRETA NELSON [facility] Other Start: 09-15-2022 Office outpatient visit 25 minutes Greta Nelson [facility] Start: 08-15-2022 End: 08-15-2022 ambulatory Greta Nelson Other [facility] Other Start: 08-15-2022 Telephone encounter Greta camacho [facility] Start: 08-12-2022 End: 08-12-2022 ambulatory Greta Nelson Other [facility] Other Start: 08-12-2022 Encounter by [employer] Greta Neslon [facility] Start: 08-08-2022 End: 08-09-2022 ambulatory GRETA NELSON [facility] Other Start: 08-08-2022 Office outpatient visit 25 minutes Greta Nelson [facility] Start: 08-07-2022 Encounter for genera l adult medical examination without abnormal findings GRETA NELSON [facility] Start: 08-03-2022 End: 08-04-2022 ambulatory GRETA NELSON Facility:[facility] Start: 08-03-2022 End: 08-04-2022 Encounter for general adult medical examination without abnormal findings GRETA NELSON Facility:[facility] Start: 06-29-2022 End: 06-29-2022 ambulatory Greta Nelson Other [facility] Other Start: 06-29-2022 Telephone encounter Greta camacho [facility] Start: 06-28-2022 End: 06-28-2022 ambulatory Greta Nelson Other [facility] Other Start: 06-28-2022 Telephone encounter Greta camacho [facility] Start: 06-27-2022 End: 06-27-2022 ambulatory GRETA NELSON [facility] Other Start: 06-27-2022 Encounter for genera l adult medical examination without abnormal findings Greta Nelson [facility] Start: 06-27-2022 Initial preventive medicine new patient 40-64yrs Greta Nelson [facility] Start: 06-27-2022 End: 06-27-2022 Patient encounter procedure [employer] Greta Nelson Work Phone: [facility] Procedures Date Procedure Procedure Detail Performing Clinician Start: 10-17-2022 X-ray of cervical spine [employer] Greta Nelson Work Phone: Start: 06-27-2022 Plain X-ray of toe [employer] Greta Nelson Work Phone: Plan of Treatment Date Care Activity Detail Author Start: 12-20-2022 [facility] Start: 12-12-2022 End: 12-13-2022 [facility] Start: 12-07-2022 [facility] Start: 12-07-2022 [facility] Comprehensive metabo lic 2000 panel - Serum or Plasma [facility] Ferritin [Mass/volum e] in Serum or Plasma [facility] Payers Date Payer Category Payer Private Health Insurance 2022 Private Health Insurance [id number] 1980 Unknown [id number] [id number] 1978 Unknown [id number] 2.16.84 [id number] 1978 Unknown [id number] 2.16.84 [id number] 1978 Unknown [id number] 2.16.84 [id number] 1978 Unknown [id number] 2.16.8 [id number] 1978 Unknown [id number] 2.16.8 [id number] 1978 Unknown [id number] 2.16.8 [id number] 1959 Private Health Insurance [id number] 1961 Self-pay Unknown [id number] 2.16.8 [id number] Social History Date Type Detail Facility Sex Assigned At [facility] Work Phone: Start: 1980 Sex Assigned At Female F [facility] Start: 01-17-2023 Tobacco smoking stat us CAIS Ex-smoker (finding) [facility] Clinical Notes 06-27-2022 to 02-27-2023 Note Date & Type Note Facility 02-27-2023 Evaluation note Encounter Date Diagnosis Assessment Notes Feb, Iron deficiency anemia, unspecified iron deficiency anemia type (ICD-10 - D50.9) patient has done iron infusions with little improvement. patient denies any blood in stools or dark stools. will proceed with EGD/Colon Feb, Abdominal cramping (ICD-10 - R10.9) [facility] Other 04-02-2023 History general Narrative - Reported* Type Description Date Medical History asthma Medical History acid reflux Medical History pressure uticaria Medical History cholecystecomy Medical History fatty liver Medical History sun allergy Surgical History cholecystectomy Surgical History eye surgery as a child, had a l azy eye Hospitalization History see above [facility] Other 02-28-2023 Evaluation note* Encounter Date Diagnosis Assessment Notes Treatment Notes Treatment Clinical Notes Dec, Primary hypertension (ICD-10 - I10) Increased dose as instructed and patient is okay with this. Has follow up with gastro and we will plan to discuss options after that is completed. [facility] Other 02-06-2023 Evaluation note* Encounter Date Diagnosis Assessment Notes Treatment Notes Treatment Clinical Notes Dec, Primary hypertension (ICD-10 - I10) [facility] Other 12-16-2022 [facility] 11, [facility] 12:44pm Note Date/Time November 04, 2022 1 1:23am [facility] [place] [address] Hem/Onc Consult Note - OP Signed Patient: Dinorah Venegas MR#: [id number] : 1980 Acct:[id number] Age/Sex: 41 / F Type: REG RCR Copies to: GRETA NELSON~ HPI Date/Time of Service: Date of Service: 11/04/2022 Time of Service: 11:22 Referring Provider/PCP: Referring Provider: CAITLIN Blevins PCP: CAITLIN Blevins - History of Present Illness Reason for Consultation: Iron deficiency anemia Chief Complaint: Patient is here today for a referral for 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 [facility] - Medical History Medical History: Medical [...] for coordination of care (as documented) and [id number]-sqld counseling of patient and/or family. Dictated By: Savana Whitfield APRN DD/ 1122 Signed By: <Electronically signed by JENISE Whitfield> 11/11/22 1247 [facility] Work Phone: 1(654) 346-800911-21-2022 Evaluation note* Encounter Date Diagnosis Assessment Notes Treatment Notes Treatment Clinical Notes Sep, Primary hypertension (ICD-10 - I10) Patient has white coat syndrome - her blood pressures at home are much better. Sep, Cervical pain (neck) (ICD-10 - M54.2) Sep, Iron deficiency anemia, unspecified iron deficiency anemia type (ICD-10 - D50.9) Referral sent to specialist as discussed. [facility] Other 10-20-2022 Evaluation note* Encounter Date Diagnosis Assessment Notes Treatment Notes Treatment Clinical Notes Aug, Pressure urticaria (ICD-10 - L50.9) Recommend labs completed before starting medications today as they may alter the results. Patient states understanding Aug, Primary hypertension (ICD-10 - I10) Increased medication as discussed and printed off information on Dash diet from [employer] Aug, Allergic contact dermatitis due to photocontact other than sunburn, current (ICD-10 - L59.8) Aug, Anemia, unspecified type (ICD-10 - D64.9) Discussed previous labs. New labwork ordered as we discussed and will start from there Aug, Rheumatoid factor positive (ICD-10 - R76.8) Referral sent as we discussed due to medical history and labs. [facility] Other 09-12-2022 Evaluation note* Encounter Date Diagnosis [...] important in all of your healthcare decisions [facility] Other 08-01-2022 Evaluation note* Encounter Date Diagnosis [...] week since blood pressure was lower at [facility] and we will go over findings. Jun, Weight gain (ICD-10 - R63.5) [facility] Other Evaluation noteNo InformationNort Alekto Other Evaluation noteNo assessment information available [facility] Work Phone: Evaluation note* Diagnosis Onset Date Resolution Status Iron deficiency anemia acute [facility] Work Phone: History general Narrative - Reported* Type Description Date Medical History asthma Medical History acid reflux Surgical History cholecystectomy Surgical History eye surgery as a child, had a l azy eye [facility] Other History general Narrative - Reported* Type Description Date Medical History asthma Medical History acid reflux Medical History pressure uticaria Surgical History cholecystectomy Surgical History eye surgery as a child, had a l azy eye Hospitalization History see above [facility] Other Progress note Author Ethan Alfaro [facility] January 17, 2023 12:17pm Note Date/Time January 17, 2023 12:07pm [facility] [place] [id number] Hem/Onc Follow Up Note - OP Signed Patient: Dinorah Venegas MR#: [id number] : 1980 Acct:[id number] Age/Sex: 42 / F Type: REG RCR Copies to: GRETA NELSON [employer]~ Date of Service: 01/17/2023 Time of Service: [...] with a rhumatologist Dr. Eddie piña in [place] for autoimmune workup. - Physical Exam CONSTITUTIONAL: [...] for coordination of care (as documented) and [id number] counseling of patient and/or family. [facility] - Medical History Medical History: Medical [...] % (Auto) 61.8, Lymph % (Auto) 31.5, Galax % (Auto) 4.6, Eos % (Auto) 1.6, Baso % (Auto) 0.5, Nucleat RBC Rel Count 0.1, Neut # (Auto) 8.2 H, Lymph # (Auto) 4.2, Galax # (Auto) 0.6, Eos # (Auto) 0.2, Baso # (Auto) 0.1 - Home Medications and Allergies Allergies/Adverse Reactions: Allergies No Known Allergies Allergy (Verified 11/04/22 11:13) Home Medications: Home Medications metoprolol succinate 25 mg tablet,extended release 24 hr 25 mg PO DAILY 11/03/22[History Confirmed 01/17/23] Dictated By: Ethan Alfaro II, DO DD/ 1206 Signed By: <Electronically signed by Ethan Alfaro II, DO> 01/17/23 1217 [facility] Work Phone: Reason for visit NarrativeRheumatology Referral Update [facility] Other Chief Complaint and Reason for Visit Chief Complaint [id number] Chief Complaint Iron Deficiency Anem ia Reason [...] iron deficiency anemia type (D50.9) Referral Organization [facility] Family Brit Fernandez Referring Provider First Name Greta Referring Provider Last Name Leslie Referring Provider Specialty Nurse Pract itioner Referred Organization [facility] Referred Provider Ethan Alfaro II Referred Address ,[place], [place],[address] Referred Provider Specialty Hematology Referral Priority Routine General Notes [facility] 12:54:03 PM >Received today and waiting for office notes to be locked before sending referral [facility] 10/27/2022 11:28:58 AM >Referral was fax Reason *FU 09/22 Patient has history of pressure Uticaria, sun sensivity and RH positive - [facility] Diagnosis 1 Rheumatoid factor po sitive (R76.8) Diagnosis 2 Allergic contact mariaelena matitis due to photocontact other than sunburn, current (L59.8) Diagnosis 3 Pressure urticaria ( L50.9) Referral Organization [facility] Family Brit Fernandez Referring Provider First Name Greta Referring Provider Last Name Leslie Referring Provider Specialty Nurse Pract itioner Referred Organization [facility] Referred Provider Stephen Chow Referred Address [address],[place], [place],[address] Referred Provider Specialty Rheumatology Referral Priority Routine General Notes [facility] 03:16:46 PM >Received today and fax referral [...] Team Status: Active Member Role Status Dates [facility] Primary Care Provider Active Goals (unrecognized section and content) Goals may be documented in a n alternate section INFORMATION SOURCE (unrecogn ized section and content) DATE CREATED AUTHOR [facility]/14/2022 [facility] DATE CREATED AUTHOR AUTHOR'S ORGANIZ ATION 02/16/2024 [facility] DATE CREATED AUTHOR AUTHOR'S ORGANIZ ATION 06/12/2024 [facility] DATE CREATED AUTHOR AUTHOR'S ORGANIZ ATION 07/12/2024 [facility] FOR RECORDS PERTAINING TO PATIENTS WHO ARE [...] BE BASED ON THE PRIMARY CLINICAL RECORDS. [facility]. provides no warranty or guarantee of the accuracy or completeness of information in this document.
[2024-07-17 06:09] LABS: HBsAg Screen Negative (Negative); HCV Ab Non Reactive (Non Reactive); HIV Ab/p24 Ag Screen Non Reactive (Non Reactive); Hep A Ab, IgM Negative (Negative); Hep B Core Ab, IgM Negative (Negative)
[2024-07-17 13:12] LABS: Rapid Plasma Reagin, Quant Non Reactive titer (NonRea<1:1)
== END 2024-07-16 10:37 | disposition home or self-care (01) ==
LOC: LAB 10:38
PROVIDERS: PCP Nurse Practitioner Family; Visit Provider Nurse Practitioner Obstetrics & Gynecology
DX: Z11.3 Encounter for screening for infections with a predominantly sexual mode of transmission (principal)
CPT/HCPCS: 36415; 80074; 86592; 87389